=== PATIENT | male | born 1970 | race African-American/Black ===

== ENCOUNTER 2016-09-21 02:22 | Observation (INO) ==
[2016-09-21] MEDS ORDERED: PANTOPRAZOLE 40 MG VIAL IV STA (02:44)
[2016-09-21] MEDS ORDERED: MORPHINE 2 MG/1 ML SYRINGE IV STA (02:44)
[2016-09-21] MEDS ORDERED: METOPROLOL TARTRATE 25 MG TABLET PO STA (02:44)
[2016-09-21] MEDS ORDERED: ALUM/MAG/SIMETH/LIDO VISC 1:1 30 ML BOTTLE PO STA (02:44)
[2016-09-21] MEDS ORDERED: ONDANSETRON 4 MG/2 ML VIAL IV STA (02:44)
[2016-09-21] MEDS ORDERED: NITROGLYCERIN 2% OINT 1 INCH/GM PACK TOP STA (02:44)
--- NOTE | 2016-09-21 02:46 | Emergency Department Note ---
Slick Adams Meredith, am scribing for, and in the presence of, Dereje To MD 02:42. Yousuf Adams Charles R, MD, personally performed the services described in this documentation, ascribed by Corrine Kruger in my presence, and it is both accurate and complete . Arrival - Arrival Chief Complaint: Chest Pain Stated Complaint: CHEST PAIN ED Nursing Triage Note: Patient complains of chest pain that worsened this evening after drinking a six pack of beer and 2 shot of alcohol, and smoking. States that he has chronic angina. Hx of HTN. Mode of Arrival: Stretcher Limitations: No Limitations Source: Patient, Old Records Reviewed, RN Notes Reviewed Time Seen by Provider: 09/21/16 02:36 - History of Present Illness HPI Narrative: Pt is a 45 y/o black male brought to the ED by EMS with c/o sharp chset pain which onset this evening. He drank a six pack of beer and 2 shots earlier today. Pt is also a smoker. He has a history of HTN, chronic angina, previous suicide attempt, substance abuse, migraine, psoriasis, kidney stones, GI bleed, hemorrhiods, GERD, herniated disk, and MRSA. Pt takes a blood thinner. Onset (ago): hour(s) Allergies/Adverse Reactions: Allergies Allergy/AdvReac Type Severity Reaction Status Date / Time aspirin AdvReac Severe GI bleeding Verified 12/20/15 22:27 Home Medications: Home Medications Medication Instructions Recorded Confirmed Type Apixaban [Eliquis] 5 mg PO BID tablet 12/28/15 06/23/16 Rx Metoprolol Tartrate Tab [Lopressor 50 mg PO BID #120 tablet 06/24/16 Rx Tab] traMADol TAB [Ultram] 50 mg PO Q6H PRN #30 tablet 06/24/16 Rx Azithromycin [Azithromycin Z Pack] 250 mg PO DIRECTED #1 tablet 09/11/16 Rx Review of System - Review of System 12 point system: reviewed and no additional remarkable complaints except as stated - Review of System Cardiovascular: Present: as per HPI, chest pain Medical,Surgical,& Family Hx - Medical History Cardio: History of: Cardiac Dysrhythmia, Hypertension, Cardiovascular Problems ( chronic angina) Psychological: History of: Previous Suicide Attempt, Psychiatric/Substance Abuse Tx Neurology: History of: Migraine Comment Only: Seizures (no prior seizure) Endocrine: No history of: Diabetes Mellitus (NIDDM) Rheumatology: History of;: Psoriasis Respiratory: No history of: COPD Renal: No history of: Renal Failure Genitourinary: History of: Kidney Stones Gastrointestinal: History of: GERD, Gastrointestinal Bleed (Kathrin Garcia tear, EGD 2009), Hemorrhoids, GI Problems Musculoskeletal: History of: Back/Neck Problems (status post laminectomy with chronic low back pain), Herniated Disk, Musculoskeletal Problems (carpal tunnel surgery left) Other: History of: MRSA (left john I&D x 2 2010, wound vac treatment), Miscellaneous Medical Problems (alcohol abuse) - Surgical History Cardiac Surgeries: Patient Denies: Cardiac Surgery Thoracic Surgeries: Patient denies;: Organ Transplant Neurologic Surgeries: Surgical HX of: Neurologic Surgery (lumbar spine surgery) HEENT Surgeries: Patient denies: Tonsilectomy & Adenoidectomy Abdominal Surgeries: Surgical HX of: Colonoscopy, EGD Patient denies: Abdominal Surgery Reproductive Surgeries: Patient denies;: Genitourinary Surgery Orthopedic Surgeries: Surgical HX of;: Orthopedic Surgery (ankle surgeries due to injury, back surgery, right arm fracture with repair), Spinal Surgery (lumbar ) - Family History Family History: Reports;: Family Cancer (aunt leukemia), Family Diabetes ( parents, grandparents), Family Heart Disease (grandmother), Family Hypertension , Family Stroke (grandmother) - Social History Smoking Status: Current every day smoker Frequency of Alcohol Use: None Type of Drug Use: None Exam Vital Signs: Vital Signs Temperature 97.9 F 09/21/16 02:25 Pulse Rate 102 H 09/21/16 02:25 Respiratory Rate 20 09/21/16 02:25 Blood Pressure 147/106 09/21/16 02:25 O2 Sat by Pulse Oximetry 100 09/21/16 02:25 - General General appearance: alert, in no apparent distress - Head Head exam: Present: atraumatic, normocephalic - Eye Eye exam: Present: normal appearance, PERRL, EOMI - ENT ENT exam: Present: mucous membranes moist, normal external ear exam - Neck Neck exam: Present: full ROM, trachea midline. Absent: tenderness, meningismus , lymphadenopathy, thyromegaly - Chest Chest inspection: Present: symmetric chest wall rise, tenderness (chest tenderness to palpation). Absent: rash - Respiratory Respiratory exam: Present: normal lung sounds bilaterally. Absent: respiratory distress - Cardiovascular Cardiovascular exam: Present: irregular rhythm (irregulary irregular) - Abdominal Exam Abdominal exam: Present: normal bowel sounds, other (protuberant). Absent: tenderness - Extremities Exam Extremities exam: Present: full ROM, normal capillary refill, pedal edema (+2 bilaterally ). Absent: tenderness, calf tenderness - Back Exam Back exam: Present: full ROM. Absent: tenderness - Neurological Exam Neurological exam: Present: alert, oriented X3, CN II-XII intact. Absent: motor sensory deficit - Psychiatric Psychiatric exam: Present: normal affect, normal mood - Skin Skin exam: Present: warm, dry, other (psoriasis to bilateral legs) Course - Consultations Consultation #1: Hospitalist will admit patient Time: 04:14 Results - Labs CBC & BMP: 09/21/16 03:10 09/21/16 03:10 Lab Results: I have reviewed the patients labs Labs: Laboratory Tests 09/21/16 03:10 WBC 4.4 RBC 3.82 Hgb 12.9 L Hct 38.4 L Plt Count 139 Neut % (Auto) 30.4 L Robertson % (Auto) 13.1 H Laboratory Tests 09/21/16 03:10 Urine pH 6.0 Ur Specific [place] 1.002 Urine Blood Small Urine Urobilinogen < 2.0 H Urine Mucus Occasional Laboratory Tests 09/21/16 03:10 Urine Opiates Screen Negative Ur Barbiturates Screen Negative Ur Phencyclidine Scrn Negative U Amphetamine/Methamph Negative U Benzodiazepines Scrn Negative U Cocaine Metab Screen Negative U Cannabinoids Screen Negative Disposition Clinical Impression: Atypical chest pain, Alcohol abuse, Atrial arrhythmia, Psoriasis, Hypertension , Tobacco abuse, Atrial fibrillation and flutter, Lower extremity edema, Acute alcohol intoxication, Holiday heart syndrome, Medical non-compliance Case discussed with: patient Disposition: Still a Patient Condition: Stable Time of Disposition: 04:14
[2016-09-21 03:14] LABS: Basophils % 0.5 % (0.0-0.8); Eosinophils # 0.1 10*3/uL (0.0-0.87); Hematocrit 38.4 VOL% (42.0-52.0); Hemoglobin 12.9 GM/DL (14.0-18.0); Immature Granulocytes % 0.5 %; Immature Granulocytes Absolute 0.02 #; Lymphocytes # 2.4 10*3/uL (1.4-4.0); Lymphocytes % 53.5 % (21.2-54.2); Mean Corpuscular HGB Conc 33.6 GM/DL (32-36); Mean Corpuscular Hemoglobin 34 PG (27-34); Mean Corpuscular Volume 100.5 FL (87-102); Monocytes # 0.6 10*3/uL (0.11-0.8); Monocytes % 13.1 % (1.7-12.7); NRBC # 0.02 10*3/uL; Neutrophils # 1.4 10*3/uL (1.4-7.4); Neutrophils % 30.4 % (38.7-73.9); Platelet Count 139 T/CUMM (130-400); Red Blood Count 3.82 MC/CUMM (3.8-5.5); Red Cell Distribution Width 15.1 % (9.3-17.3); White Blood Count 4.4 T/CUMM (4-12)
[2016-09-21 03:19] LABS: Apearance,Urine CLEAR (Clear); Bilirubin,Urine Negative (Negative); Blood, Urine Small mg/dL (Negative); Glucose,Urine (UA) Negative (Negative); Ketones,Urine Negative (Negative); Mucus,Urine Occasional /LPF (Occasional); Nitrite,Urine Negative (Negative); Protein,Urine Negative; Urine Color Straw (Yellow); Urine Specific Gravity 1.002 (1.001-1.035); Urine Urobilinogen < 2.0 EU/DL (0.2-1.0)
[2016-09-21 03:25] LABS: Barbiturates Screen,Urine Negative (Negative); Benzodiazepines Screen,Urine Negative (Negative); Cannabinoid Screen,Urine Negative (Negative); Opiate Screen,Urine Negative (Negative); Phencyclidine Screen,Urine Negative (Negative)
[2016-09-21 03:26] LABS: PT Patient Result 10.2 SECS
[2016-09-21] MEDS ORDERED: NITROGLYCERIN 2% OINT 1 INCH/GM PACK TOP ONE (03:29)
[2016-09-21] MEDS ORDERED: PANTOPRAZOLE 40 MG VIAL IV ONE (03:29)
[2016-09-21] MEDS ORDERED: ALUM/MAG/SIMETH/LIDO VISC 1:1 30 ML BOTTLE PO ONE (03:30)
[2016-09-21] MEDS ORDERED: METOPROLOL TARTRATE 25 MG TABLET ONE (03:30)
[2016-09-21] MEDS ORDERED: MORPHINE 2 MG/1 ML SYRINGE ONE (03:30)
[2016-09-21] MEDS ORDERED: ONDANSETRON 4 MG/2 ML VIAL ONE (03:30)
[2016-09-21 03:40] LABS: Alanine Aminotransferase 70 U/L (16-61); Albumin 3.9 G/DL (3.4-5.0); Alkaline Phosphatase 58 U/L (45-117); Aspartate Amino Transferase 95 U/L (0-37); Bilirubin,Total < 0.39 MG/DL (0.2-1.0); Blood Urea Nitrogen 13 MG/DL (7-18); Calcium 8.8 MG/DL (8.5-10.1); Glucose 77 MG/DL (74-106); Magnesium 2.1 MG/DL (1.8-2.4); Potassium 3.6 MMOL/L (3.5-5.1); Sodium 143 MMOL/L (136-145); Total Protein 8.5 G/DL (6.4-8.3)
[2016-09-21 03:58] LABS: Lymphocytes 52 % (20-55); Segmented Neutrophils 31 % (50-85); Total Cells Counted 100
[2016-09-21 03:59] LABS: Platelet Estimate Adequate
--- NOTE | 2016-09-21 05:45 | Hospitalist History & Physical ---
Assessment and Plan (1) Atypical chest pain Status: Acute Assessment and plan: Admit to observation, monitor on telemetry, trend troponins Pain control with IV morphine Continue beta-ady, Eliquis, start statin Likely needs to be seen by cardiology again outpatient versus inpatient Current Visit: Yes (2) A-fib Status: Chronic Assessment and plan: Currently rate controlled. Monitor on telemetry. Continue Eliquis, beta- ady. Current Visit: Yes Qualifiers: Atrial fibrillation type: chronic Qualified Code(s): I48.2 - Chronic atrial fibrillation (3) Alcohol abuse Status: Acute Assessment and plan: Patient reports history of alcohol withdrawal seizures. Monitor closely for signs of DTs on alcohol withdrawal protocol with as needed Ativan. Give thiamine, multivitamin, folate, with IVF's. Transaminases elevated, likely secondary to alcohol abuse. Does not appear to have acute alcoholic hepatitis. Could get liver ultrasound as outpatient. Patient needs to quit drinking. Current Visit: Yes History of Present Illness Chief complaint: Chest pain History of present illness: Mr. Jenkins is a 45 year old -[place] male with history of A. fib, alcohol abuse, hypertension, GI bleed, "chronic angina" presented with a chief complaint chest pain. Patient reports that he has had a gradual progressive onset of chest pain for 2 years duration. He presented to the emergency department on this night because the pain became so much worse after a binge of alcohol which included 6 cans of beer and 2 shots of hard liquor. This is his typical pattern on the weekends. The pain is located on the left side of his chest, is sharp and constant. It is associated with diaphoresis, dyspnea, and the symptoms are worse with exertion, changes in position, palpation, smoking. Basically he states that he lives with the pain all the time, it limits his functional status, and that everything makes it worse and nothing makes it better. In the emergency department he received nitroglycerin, GI cocktail, morphine all without significant improvement in his symptoms. He additionally complains of chronic abdominal pain, nausea with vomiting 2-3 times weekly for a long time, "psoriasis" on his skin, chronic back pain, chronic joint pains, allergic rhinitis, chronic productive cough. The only medications that he takes at home are Eliquis and metoprolol. He has seen Dr. Alvarez in the past, but denied ever having heart catheterization or stress testing. He lives alone and does not have a primary care provider. Home Medications Medication Instructions Recorded Confirmed Type Apixaban [Eliquis] 5 mg PO BID tablet 12/28/15 06/23/16 Rx Metoprolol Tartrate Tab [Lopressor 50 mg PO BID #120 tablet 06/24/16 Rx Tab] traMADol TAB [Ultram] 50 mg PO Q6H PRN #30 tablet 06/24/16 Rx Azithromycin [Azithromycin Z Pack] 250 mg PO DIRECTED #1 tablet 09/11/16 Rx Allergies Allergy/AdvReac Type Severity Reaction Status Date / Time aspirin AdvReac Severe GI bleeding Verified 12/20/15 22:27 Medical,Surgical,& Family Hx - Medical History Cardio: History of: Cardiac Dysrhythmia, Hypertension, Cardiovascular Problems ( chronic angina) Psychological: History of: Previous Suicide Attempt, Psychiatric/Substance Abuse Tx Neurology: History of: Migraine Comment Only: Seizures (no prior seizure) Endocrine: No history of: Diabetes Mellitus (NIDDM) Rheumatology: History of;: Psoriasis Respiratory: No history of: COPD Renal: No history of: Renal Failure Genitourinary: History of: Kidney Stones Gastrointestinal: History of: GERD, Gastrointestinal Bleed (Kathrin Garcia tear, EGD 2009), Hemorrhoids, GI Problems Musculoskeletal: History of: Back/Neck Problems (status post laminectomy with chronic low back pain), Herniated Disk, Musculoskeletal Problems (carpal tunnel surgery left) Other: History of: MRSA (left john I&D x 2 2010, wound vac treatment), Miscellaneous Medical Problems (alcohol abuse) - Surgical History Cardiac Surgeries: Patient Denies: Cardiac Surgery Thoracic Surgeries: Patient denies;: Organ Transplant Neurologic Surgeries: Surgical HX of: Neurologic Surgery (lumbar spine surgery) HEENT Surgeries: Patient denies: Tonsilectomy & Adenoidectomy Abdominal Surgeries: Surgical HX of: Colonoscopy, EGD Patient denies: Abdominal Surgery Reproductive Surgeries: Patient denies;: Genitourinary Surgery Orthopedic Surgeries: Surgical HX of;: Orthopedic Surgery (ankle surgeries due to injury, back surgery, right arm fracture with repair), Spinal Surgery (lumbar ) - Family History Family History: Reports;: Family Cancer (aunt leukemia), Family Diabetes ( parents, grandparents), Family Heart Disease (grandmother), Family Hypertension , Family Stroke (grandmother) - Social History Smoking Status: Current every day smoker Have you smoked in the last 12 months: Yes (30 year smoking history) Frequency of Alcohol Use: None Type of Drug Use: None Marital Status: Single Lives With:: Alone Functional capacity: independent ambulation Review of systems: - Constitutional Constitutional: Present: Diaphoresis absent: chills, fatigue, fever(s), weight loss - EENT Eyes: Absent: blurry vision Ears: Absent: decreased hearing, ear pain Nose, mouth and throat: Present: nasal congestion, sore throat - Cardiovascular Cardiovascular: Present: chest pain at rest, chest pain with activity, dyspnea on exertion, edema, palpitations - Respiratory Respiratory: Present: cough, dyspnea absent: Hemoptysis - Gastrointestinal Gastrointestinal: Present: Abdominal pain, nausea and vomiting absent: constipation, diarrhea, dysphagia, hematemesis, hematochezia, melena - Genitourinary Genitourinary: Absent: difficulty urinating, dysuria, hematuria - Musculoskeletal Musculoskeletal: Present: Chronic back, knee, ankle pain - Neurological Neurological: Absent: confusion, dizziness, focal weakness, numbness, paresthesias, syncope - Psychiatric Psychiatric: Absent: anxiety, depression - Endocrine Endocrine: Absent: cold intolerance, heat intolerance, polydipsia, polyuria - Hematologic/Lymphatic Hematologic/Lymphatic: Absent: easy bleeding, easy bruising, lymphadenopathy Exam - Constitutional Vitals: Period Temp Pulse Resp BP Sys/Peterson Pulse Ox Last 24 Hr 97.9 F-97.9 F 102-102 20-20 147-147/106-106 100 General appearance: over weight, disheveled, other (-[place] male middle -aged) Exam: - Eye Eye exam: Present: EOMI. Absent: conjunctival injection, scleral icterus Pupils: Present: SHAREE - ENT ENT exam: Present: normal external ear exam, normal oropharynx - Expanded ENT Exam Mouth exam: Present: moist - Neck Neck exam: Present: normal inspection. Absent: lymphadenopathy, thyromegaly - Respiratory Respiratory exam: Present: Mild end expiratory wheezing, otherwise clear to auscultation bilaterally. Absent: accessory muscle use, rales, rhonchi, wheezes - Cardiovascular Cardiovascular exam: Present: Normal rate, irregularly irregular rhythm. Chest pain reproducible with palpation absent: diastolic murmur, systolic murmur - Expanded Cardiovascular Exam Peripheral pulses: 2+: posterior tibialis (L), posterior tibialis (R) - GI/Abdominal GI/Abdominal exam: Present: normal bowel sounds, soft, diffusely tender to palpation. Absent: distended, hyperactive bowel sounds, hypoactive bowel sounds , organomegaly, rebound - Extremities Exam Extremities exam: Present: Mild bilateral lower extremity edema - Neurological Exam Neurological exam: Present: alert, oriented X3, CN II-XII intact. Absent: motor deficit - Psychiatric Psychiatric exam: Present: Irritable affect - Skin Skin exam: [Present: warm, dry, dry skin rash around ankles. Absent: diaphoretic Results - Labs CBC & BMP: 09/21/16 03:10 09/21/16 03:10 - EKG EKG results: normal axis, normal QRS, normal ST/T EKG shows: atrial fibrillation - Diagnostic Findings Procedure: Chest x-ray: report reviewed by me
[2016-09-21] MEDS ORDERED: SODIUM CHLORIDE 0.45% 1,000 ML IV SCH (07:30)
[2016-09-21] MEDS ORDERED: LORazepam 1 MG TABLET PO PRN (07:30)
[2016-09-21] MEDS ORDERED: ACETAMINOPHEN 325 MG TABLET PO PRN (07:30)
[2016-09-21] MEDS ORDERED: MORPHINE 2 MG/1 ML SYRINGE IV PRN (07:30)
--- NOTE | 2016-09-21 07:35 | EKG Report ---
Stationary ECG Study [facility] ER Test Date: 09/21/2016 2:30:11 AM Pat Name: HARIKA PICKENS Department: Room: 287 Gender: M Railroad Operator: : 1970 Requested by: Dereje Walters Order Number: [id number] Hay MD: DIONE RUIZ Intervals [place] Rate: 84 P: 999 MS: 0 QRS: 7 QRSD: 108 T: 48 QT: 377 QTc: 418 Interpretive Statements ATRIAL FIBRILLATION ABNORMAL RHYTHM ECG Electronically Signed On 09-22-16 06:36:40 CDT by DIONE RUIZ [email or web address]
--- NOTE | 2016-09-21 07:49 | EKG Report ---
Stationary ECG Study [facility] Test Date: 09/21/2016 7:48:18 AM Pat Name: HARIKA PICKENS Department: Room: 287 Gender: M Medical Assembly: : 1970 Requested by: Lyndon Spangler Order Number: [id number] Reading MD: DINOE RUIZ Intervals [place] Rate: 61 P: 999 OK: 0 QRS: 64 QRSD: 89 T: 77 QT: 423 QTc: 426 Interpretive Statements ATRIAL FIBRILLATION ABNORMAL RHYTHM ECG OTHERWISE WNL Electronically Signed On 09-22-16 06:37:51 CDT by DIONE RUIZ [email or web address]
[2016-09-21] MEDS ORDERED: MULTIVITAMIN (CENTRUM) TABLET PO SCH (09:00)
[2016-09-21] MEDS ORDERED: APIXABAN 5 MG TABLET PO SCH (09:00)
[2016-09-21] MEDS ORDERED: THIAMINE 100 MG TABLET PO SCH (09:00)
[2016-09-21] MEDS ORDERED: METOPROLOL TARTRATE 25 MG TABLET PO SCH (09:00)
[2016-09-21] MEDS ORDERED: FOLIC ACID 1 MG TABLET PO SCH (09:00)
[2016-09-21] MEDS: ROSUVASTATIN 20 MG TABLET PO SCH ×2 (09:43→10:21)
--- NOTE | 2016-09-21 10:29 | EKG Report ---
Stationary ECG Study [facility] Test Date: 09/21/2016 10:28:50 AM Pat Name: HARIKA PICKENS Department: Room: 287 Gender: M Production Line Welder: : 1970 Requested by: Lyndon Spangler Order Number: [id number] Reading MD: DIONE RUIZ Intervals [place] Rate: 75 P: 999 MT: 0 QRS: 24 QRSD: 90 T: 58 QT: 374 QTc: 403 Interpretive Statements ATRIAL FIBRILLATION NONSPECIFIC T-WAVE ABNORMALITY ABNORMAL RHYTHM ECG Electronically Signed On 09-22-16 06:38:39 CDT by DIONE RUIZ [email or web address]
--- NOTE | 2016-09-21 10:37 | XRay Report ---
History: Chest pain Date: 09/21/2016 Study: Chest x-ray AP portable Comparison exam: September 11, 2016 chest x-ray The cardiac silhouette is upper normal in size. There is no mediastinal mass. The pulmonary vasculature is not engorged. There is no gross pleural effusion. There is some mild strandy subsegmental atelectasis in the medial right lung base. There is no fernando consolidated pneumonia. Osseous structures are similar. Impression: Shallow inspiration with mild subsegmental atelectasis in the right lung base. PROCEDURE INTERPRETED AT [facility] DEPARTMENT OF RADIOLOGY Final Report Signed by: Dr. Chely Navarrete
--- NOTE | 2016-09-21 11:43 | Cardiology Consult Note ---
Assessment and Plan (1) Atypical chest pain Status: Acute Assessment and plan: This chest pain is clearly not anginal in nature. It is probably musculoskeletal, but also could be GI related. I think the best treatment for this is abstinence from alcohol and proper nutrition. I don't think he requires further/repeat cardiac evaluation at this time. My standpoint he could be discharged home. He can follow-up with Dr. Alvarez in the clinic and with his primary care provider. Current Visit: Yes (2) Alcohol abuse Status: Acute Assessment and plan: Clearly the patient needs to stop drinking or at least drink moderately. This is a chronic long-standing problem. Current Visit: Yes (3) Medical non-compliance Status: Acute Current Visit: Yes (4) Psoriasis Status: Acute Current Visit: Yes (5) A-fib Status: Chronic Assessment and plan: Thereafter fibrillation rate is well-controlled and asymptomatic. I don't see any reason to make any changes. He is on proper stroke prophylaxis as well. Current Visit: Yes Qualifiers: Atrial fibrillation type: chronic Qualified Code(s): I48.2 - Chronic atrial fibrillation (6) Hypertension Status: Chronic Current Visit: Yes (7) Chronic anticoagulation Status: Acute Current Visit: Yes History of Present Illness - Consult Narrative History of present illness: Mr. Jenkins is a 45 year old male who has a history of alcoholism, with an associated cardiomyopathy. He also has a history of chronic atrial fibrillation and chronic recurrent atypical chest pain. Essentially, the patient came to the hospital after having several sharp stabbing chest pains. These lasted for one to 2 seconds. There were severe but promptly resolved. There were no associated with exertion or relieved with rest. This occurred while he was in his recliner. There were no associated symptoms. He does not have any exertional angina. He also has some chronic abdominal pain with occasional vomiting. This is presumed to be secondary to his chronic alcoholism and nonsteroidal use. He has no dysphagia or overt gastrointestinal blood loss. At the time I was seeing him he was feeling back to his usual self. He has chronic atrial fibrillation but this is well controlled as long as he is taking his medicines. He has seen Dr. Alvarez in the past. He is also on chronic anticoagulation with Eliquis. He has no fever, chills, or cough. He has no orthopnea or PND. He denies any peripheral edema. Since admission he isn't had multiple sets of cardiac enzymes which are negative. His presenting symptoms are clearly not from coronary ischemia. His atrial fibrillation wrote has been well-controlled. He apparently has a history of alcohol withdrawals seizures in the past. Home Medications Medication Instructions Recorded Confirmed Type Apixaban [Eliquis] 5 mg PO BID tablet 12/28/15 09/21/16 Rx Metoprolol Tartrate Tab [Lopressor 50 mg PO BID #120 tablet 06/24/16 09/21/16 Rx Tab] CC: Francisco Olmos - Home Medications and Allergies Home Medications: Home Medications Medication Instructions Recorded Confirmed Type Apixaban [Eliquis] 5 mg PO BID tablet 12/28/15 09/21/16 Rx Metoprolol Tartrate Tab [Lopressor 50 mg PO BID #120 tablet 06/24/16 09/21/16 Rx Tab] Allergies/Adverse Reactions: Allergies Allergy/AdvReac Type Severity Reaction Status Date / Time aspirin AdvReac Severe GI bleeding Verified 12/20/15 22:27 12 point system: reviewed and no additional remarkable complaints except as stated Medical,Surgical,& Family Hx - Medical History Cardio: History of: Cardiac Dysrhythmia, Hypertension, Cardiovascular Problems ( chronic angina) Psychological: History of: Previous Suicide Attempt, Psychiatric/Substance Abuse Tx Neurology: History of: Migraine Comment Only: Seizures (no prior seizure) Endocrine: No history of: Diabetes Mellitus (NIDDM) Rheumatology: History of;: Psoriasis Respiratory: No history of: COPD Renal: No history of: Renal Failure Genitourinary: History of: Kidney Stones Gastrointestinal: History of: GERD, Gastrointestinal Bleed (Kathrin Garcia tear, EGD 2009), Hemorrhoids, GI Problems Musculoskeletal: History of: Back/Neck Problems (status post laminectomy with chronic low back pain), Herniated Disk, Musculoskeletal Problems (carpal tunnel surgery left) Other: History of: MRSA (left john I&D x 2 2010, wound vac treatment), Miscellaneous Medical Problems (alcohol abuse) - Surgical History Cardiac Surgeries: Patient Denies: Cardiac Surgery Thoracic Surgeries: Patient denies;: Organ Transplant Neurologic Surgeries: Surgical HX of: Neurologic Surgery (lumbar spine surgery) HEENT Surgeries: Patient denies: Tonsilectomy & Adenoidectomy Abdominal Surgeries: Surgical HX of: Colonoscopy, EGD Patient denies: Abdominal Surgery Reproductive Surgeries: Patient denies;: Genitourinary Surgery Orthopedic Surgeries: Surgical HX of;: Orthopedic Surgery (ankle surgeries due to injury, back surgery, right arm fracture with repair), Spinal Surgery (lumbar ) - Family History Family History: Reports;: Family Cancer (aunt leukemia), Family Diabetes ( parents, grandparents), Family Heart Disease (grandmother), Family Hypertension , Family Stroke (grandmother) - Social History Smoking Status: Current every day smoker Frequency of Alcohol Use: None Type of Drug Use: None Physical Examination Vital Signs Temp Pulse Resp BP Pulse Ox 97.9 F 88 20 147/106 100 09/21/16 02:25 09/21/16 02:25 09/21/16 02:25 09/21/16 02:25 09/21/16 02:25 Other: General: Appears well developed, well nourished, no apparent distress HEENT: Normocephalic, atraumatic Neck: Supple Neck, Midline Trachea, No Bruit, No JVD Cardiac: Irregular rhythm, No Murmur, no gallop, no rub Lungs: Clear to auscultation, No Wheeze, Rales, Rhonchi Neuro: Cranial Nerve 2-12 Intact, Motor Function Grossly Intact Abdomen: Soft, Active Bowel Sounds, No Masses, No Pulsations/Bruits Skin: Normal color, no rash Extremities: No Clubbing, No Cyanosis, No Edema, Normal Upper Extr. Pulses Musculoskeletal: No acute abnormality noted Psychiatric: The patient has an anxious, depressed appearance but is otherwise normal Result/EKG - Labs CBC & BMP: 09/21/16 03:10 09/21/16 03:10 Lab Results: I have reviewed the past 24 hour labs Labs: Laboratory Results - last 24 hr 09/21/16 09/21/16 09/21/16 07:16 07:55 10:35 POC Glucose 72 L Troponin I < 0.015 < 0.015 - EKG EKG results: interpreted by me
--- NOTE | 2016-09-21 12:10 | Discharge Summary ---
Hospital Course - Hospital Course Hospital Course: Mr. Jenkins is a 45-year-old -[place] male with a history of A. fib, alcohol abuse, hypertension, GI bleed, chronic angina who presented with chest discomfort which been gradually progressive over the 2 years duration. He presented to the emergency room because pain became much worse after binge of alcohol which included 6 cans of beer and 2 shots of hard liquor. This is his typical pattern of drinking on the weekends. The pain was located on the left chest with sharp and constant in nature and associated with diaphoresis dyspnea and the symptoms worsen with exertion, changes in position, palpation. He was placed in observation and serial cardiac isoenzymes and EKGs revealed no evidence of myocardial necrosis. Patient was seen by Dr. Chawla of cardiology who felt this was not chest pain related to cardiac etiology likely secondary to his under alcohol abuse. He recommended discharge with follow-up Dr. Alvarez on outpatient basis. Alcohol abstinence has been recommended. - Time spent with patient Time with patient DS: Less than 30 minutes Diagnosis - Discharge Diagnosis (1) Alcohol abuse Status: Acute (2) A-fib Status: Chronic (3) Hypertension Status: Chronic (4) Atypical chest pain Status: Acute Discharge Plan - Discharge Data Disposition: Disch To Home/Self Care Condition at Discharge: Stable Discharge Diet: advance to your usual diet Activity: resume usual activities as tolerated Hygiene: no restrictions Weight Bearing at Discharge: full weight bearing - Discharge Medications New Multivitamin (Centrum) [Centrum Tab] 1 tablet PO DAILY tablet Thiamine Tab [Vitamin B1 Tab] 100 mg PO DAILY tablet Continue Apixaban [Eliquis] 5 mg PO BID tablet Metoprolol Tartrate Tab [Lopressor Tab] 50 mg PO BID #120 tablet - Follow Up or Referral Follow Up: Mdahu Alvarez MD [Physician] - 1 Week PCP, Clinic [Other] - 1 Week - Forms/Instructions Instructions: Acute Coronary Syndrome Exam - Constitutional Vitals: Period Temp Pulse Resp BP Sys/Peterson Pulse Ox Last 24 Hr 96.3 F 82-96 14-20 107-160/87-94 98-100 General appearance: no acute distress - Head Head exam: Present: normocephalic, atraumatic - Eye Eye exam: Present: EOMI Pupils: Present: SHAREE - ENT ENT exam: Present: normal exam - Neck Neck exam: Present: normal inspection - Respiratory Respiratory exam: Present: clear to auscultation bilaterally - Cardiovascular Cardiovascular exam: Present: regular rate and rhythm - GI/Abdominal GI/Abdominal exam: Present: normal bowel sounds, soft. Absent: distended, mass , tenderness - Extremities Exam Extremities exam: Absent: calf tenderness, edema - Back Exam Back exam: Present: normal inspection - Neurological Exam Neurological exam: Present: alert, oriented X3, CN II-XII intact. Absent: motor sensory deficit - Psychiatric Psychiatric exam: Present: normal affect, normal mood. Absent: agitated, anxious - Skin Skin exam: Present: warm, dry. Absent: erythema, rash Discharge Results Procedures and tests throughout hospitalization: Pending Orders 09/21/16 13:30 Troponin I Only Q3H Labs on day of discharge: Labs from last 24 hours 09/21/16 09/21/16 09/21/16 10:35 07:55 07:16 POC Glucose 72 L Troponin I < 0.015 < 0.015 - Impressions EKG without acute ST segment changes. Atrial fibrillation with controlled ventricular response. - Imaging and Cardiology Procedure: Chest x-ray: report reviewed by me DS: Provider Date of admission: 09/21/16 04:55 Primary care physician: Nonstaff Physician Attending physician on admission: Lyndon Henrandez MD Consults: 09/21/16 07:30 Consult to Physician [CONS] Routine Comment: Consulting Provider: Cardiology - [facility] Person Notified: cam @ [facility] Date Notified: 09/21/16 Time Notified: 10:01 09/21/16 07:34 Consult to Pharmacy [CONS] Routine Reason for Pharmacy Consult: Adjust Meds Renal Funct Discharging clinician: Francisco Olmos Expected date of discharge: 09/21/16
[2016-09-21 12:31] VITALS: BP 107/53
--- NOTE | 2016-09-21 13:32 | EKG Report ---
Stationary ECG Study [facility] Test Date: 09/21/2016 1:32:02 PM Pat Name: HARIKA PICKENS Department: Room: 287 Gender: M Retaining Room Cutter: : 1970 Requested by: Lyndon Spangler Order Number: [id number] Reading MD: DIONE RUIZ Intervals [place] Rate: 82 P: 999 HI: 0 QRS: 23 QRSD: 91 T: 64 QT: 401 QTc: 439 Interpretive Statements ATRIAL FIBRILLATION ABNORMAL RHYTHM ECG Electronically Signed On 09-22-16 06:39:23 CDT by DIONE RUIZ [email or web address]
== END 2016-09-21 14:12 | disposition home or self-care (01) ==
LOC: EDUNIT# → N.EDINP 02:22 → N.ED 02:22 → SUATTDRO 04:55 → N.TELEN 06:15
PROVIDERS: ADMIT Student in an Organized Health Care Education/Training Program; ATTEND Hospitalist

== ENCOUNTER 2017-06-02 05:04 | Inpatient (IN) ==
[2017-06-02] MEDS ORDERED: ONDANSETRON 4 MG/2 ML VIAL IV STA (05:11)
[2017-06-02] MEDS ORDERED: MORPHINE 2 MG/1 ML SYRINGE IV STA (05:11)
[2017-06-02] MEDS ORDERED: MORPHINE 2 MG/1 ML SYRINGE ONE (05:24)
[2017-06-02] MEDS ORDERED: ONDANSETRON 4 MG/2 ML VIAL ONE (05:24)
[2017-06-02 06:00] LABS: Basophils % 0.8 % (0.0-0.8); Eosinophils % 0.3 % (0.00-10.9); Hematocrit 44.8 VOL% (42.0-52.0); Hemoglobin 15.6 GM/DL (14.0-18.0); Immature Granulocytes % 1.1 %; Immature Granulocytes Absolute 0.04 #; Lymphocytes # 1.8 10*3/uL (1.4-4.0); Lymphocytes % 50.4 % (21.2-54.2); Mean Corpuscular HGB Conc 34.8 GM/DL (32-36); Mean Corpuscular Hemoglobin 34 PG (27-34); Mean Corpuscular Volume 98.2 FL (87-102); Mean Platelet Volume 10.3 FL (9.6-12.0); Monocytes # 0.6 10*3/uL (0.11-0.8); Monocytes % 16.1 % (1.7-12.7); NRBC # 0.02 10*3/uL; Neutrophils # 1.1 10*3/uL (1.4-7.4); Neutrophils % 31.3 % (38.7-73.9); Platelet Count 143 T/CUMM (130-400); Red Blood Count 4.56 MC/CUMM (3.8-5.5); Red Cell Distribution Width 14.6 % (9.3-17.3); White Blood Count 3.5 T/CUMM (4-12)
[2017-06-02 06:38] LABS: Lymphocytes 44 % (20-55); Nucleated Red Blood Cells 1 (0-5); Segmented Neutrophils 43 % (50-85); Total Cells Counted 100
[2017-06-02 06:39] LABS: Alanine Aminotransferase 102 U/L (16-61); Albumin 3.7 G/DL (3.4-5.0); Alkaline Phosphatase 54 U/L (45-117); Aspartate Amino Transferase 168 U/L (0-37); Bilirubin,Total < 0.39 MG/DL (0.2-1.0); Blood Urea Nitrogen 28 MG/DL (7-18); Calcium 8.2 MG/DL (8.5-10.1); Glucose 73 MG/DL (74-106); Hypochromasia 1+; Osmolality,Calculated 272.2 MOS/KG (273-304); Platelet Estimate Adequate; Sodium 134 MMOL/L (136-145); Total Protein 8.5 G/DL (6.4-8.3)
[2017-06-02] MEDS ORDERED: SODIUM CHLORIDE 0.9% 1,000 ML IV STA (07:32)
[2017-06-02] MEDS ORDERED: PIPERACILLIN/TAZOBACTAM 3,375 MG in SODIUM CHLORIDE 0.9% 100 ML IV STA (07:32)
[2017-06-02] MEDS ORDERED: PIPERACILLIN/TAZOBACTAM 3,375 MG VIAL IV ONE (07:55)
[2017-06-02] MEDS ORDERED: DILTIAZEM 50 MG/10 ML VIAL IV STA (08:18)
[2017-06-02] MEDS ORDERED: DILTIAZEM 50 MG/10 ML VIAL IV ONE (08:33)
[2017-06-02] MEDS ORDERED: DILTIAZEM 100 MG VIAL.ADD IV ONE (08:33)
[2017-06-02] MEDS ORDERED: SODIUM CHLORIDE 0.9% 100 ML IV ONE (08:34)
[2017-06-02] MEDS: DILTIAZEM INJ 100 MG in SODIUM CHLORIDE 0.9% 100 ML IV SCH ×2 (08:50→18:46)
[2017-06-02] MEDS ORDERED: LEVOFLOXACIN INJ 150 ML IV ONE (12:21)
[2017-06-02] MEDS: LEVOFLOXACIN INJ 750 MG in PREMIX 1 EACH IV SCH (12:27)
[2017-06-02] MEDS: NICOTINE 14 MG/24 HR PATCH TRANSDERM SCH (19:28)
[2017-06-02] MEDS: METOPROLOL TARTRATE 50 MG TABLET PO SCH (22:20)
[2017-06-02] MEDS: APIXABAN 5 MG TABLET PO SCH (22:20)
[2017-06-02] MEDS: tiZANidine 4 MG TABLET PO PRN (23:49)
[2017-06-03] MEDS: DILTIAZEM INJ 100 MG in SODIUM CHLORIDE 0.9% 100 ML IV SCH (08:32)
[2017-06-03] MEDS: LEVOFLOXACIN INJ 750 MG in PREMIX 1 EACH IV SCH (09:02)
[2017-06-03] MEDS: NICOTINE 14 MG/24 HR PATCH TRANSDERM SCH (09:02)
[2017-06-03] MEDS: APIXABAN 5 MG TABLET PO SCH ×2 (09:03→21:36)
[2017-06-03] MEDS: METOPROLOL TARTRATE 50 MG TABLET PO SCH ×2 (09:03→21:36)
[2017-06-03] MEDS ORDERED: KETOROLAC 30 MG/1 ML VIAL IV PRN (09:30)
[2017-06-03] MEDS ORDERED: KETOROLAC 30 MG/1 ML VIAL IV SCH (10:00)
[2017-06-03] MEDS ORDERED: BUTALBITAL/ACETAMIN/CAFFEINE 50-325-40 MG TABLET PO PRN (10:32)
[2017-06-03] MEDS: tiZANidine 4 MG TABLET PO PRN (21:36)
[2017-06-04 05:03] LABS: Basophils % 0.7 % (0.0-0.8); Eosinophils % 0.3 % (0.00-10.9); Hemoglobin 14.5 GM/DL (14.0-18.0); Immature Granulocytes % 0.3 %; Immature Granulocytes Absolute 0.01 #; Lymphocytes # 2.2 10*3/uL (1.4-4.0); Lymphocytes % 75.3 % (21.2-54.2); Mean Corpuscular HGB Conc 34.5 GM/DL (32-36); Mean Corpuscular Hemoglobin 34 PG (27-34); Mean Corpuscular Volume 97.9 FL (87-102); Mean Platelet Volume 10.6 FL (9.6-12.0); Monocytes # 0.3 10*3/uL (0.11-0.8); Monocytes % 10.1 % (1.7-12.7); NRBC # 0.02 10*3/uL; Neutrophils # 0.4 10*3/uL (1.4-7.4); Neutrophils % 13.3 % (38.7-73.9); Platelet Count 103 T/CUMM (130-400); Red Blood Count 4.29 MC/CUMM (3.8-5.5); Red Cell Distribution Width 13.9 % (9.3-17.3)
[2017-06-04 05:46] LABS: Calcium 8.3 MG/DL (8.5-10.1); Potassium 4.1 MMOL/L (3.5-5.1)
[2017-06-04 05:58] LABS: Risk Ratio 3.97; VLDL CHOLESTEROL 21.4 MG/DL
[2017-06-04 06:04] LABS: Lymphocytes 70 % (20-55); Platelet Estimate Adequate; Segmented Neutrophils 20 % (50-85); Total Cells Counted 100
[2017-06-04] MEDS: NICOTINE 14 MG/24 HR PATCH TRANSDERM SCH (09:01)
[2017-06-04] MEDS: APIXABAN 5 MG TABLET PO SCH ×2 (09:02→20:10)
[2017-06-04] MEDS: METOPROLOL TARTRATE 50 MG TABLET PO SCH ×2 (09:02→20:10)
[2017-06-04] MEDS: LEVOFLOXACIN INJ 750 MG in PREMIX 1 EACH IV SCH (09:02)
[2017-06-04] MEDS ORDERED: LISINOPRIL 2.5 MG TABLET PO SCH (12:30)
[2017-06-04] MEDS: FUROSEMIDE 20 MG/2 ML VIAL IV SCH (16:11)
[2017-06-04] MEDS: tiZANidine 4 MG TABLET PO PRN (20:10)
[2017-06-04] MEDS: LISINOPRIL 5 MG TABLET PO SCH (20:10)
[2017-06-05 05:59] LABS: Basophils % 0.7 % (0.0-0.8); Eosinophils % 0.7 % (0.00-10.9); Hematocrit 42.4 VOL% (42.0-52.0); Immature Granulocytes % 0.6 %; Immature Granulocytes Absolute 0.03 #; Lymphocytes # 3.5 10*3/uL (1.4-4.0); Lymphocytes % 65.9 % (21.2-54.2); Mean Corpuscular HGB Conc 35.4 GM/DL (32-36); Mean Corpuscular Hemoglobin 34 PG (27-34); Mean Platelet Volume 11.3 FL (9.6-12.0); Monocytes # 0.5 10*3/uL (0.11-0.8); Monocytes % 8.9 % (1.7-12.7); NRBC # 0.02 10*3/uL; Neutrophils # 1.2 10*3/uL (1.4-7.4); Neutrophils % 23.2 % (38.7-73.9); Platelet Count 116 T/CUMM (130-400); Red Blood Count 4.37 MC/CUMM (3.8-5.5); Red Cell Distribution Width 13.6 % (9.3-17.3); White Blood Count 5.4 T/CUMM (4-12)
[2017-06-05 06:26] LABS: Calcium 8.7 MG/DL (8.5-10.1); Magnesium 1.9 MG/DL (1.8-2.4); Osmolality,Calculated 266.2 MOS/KG (273-304)
[2017-06-05 06:52] LABS: Hypochromasia 1+; Lymphocytes 64 % (20-55); Segmented Neutrophils 24 % (50-85); Total Cells Counted 100
[2017-06-05 06:53] LABS: Atypical Lymphocytes Few; Platelet Estimate Decreased
[2017-06-05] MEDS: FUROSEMIDE 20 MG/2 ML VIAL IV SCH ×2 (10:07→17:15)
[2017-06-05] MEDS: LEVOFLOXACIN INJ 750 MG in PREMIX 1 EACH IV SCH (10:09)
[2017-06-05] MEDS: METOPROLOL TARTRATE 50 MG TABLET PO SCH ×2 (10:11→21:46)
[2017-06-05] MEDS: APIXABAN 5 MG TABLET PO SCH ×2 (10:11→21:46)
[2017-06-05] MEDS: LISINOPRIL 5 MG TABLET PO SCH ×2 (10:11→21:46)
[2017-06-05] MEDS: NICOTINE 14 MG/24 HR PATCH TRANSDERM SCH (10:12)
[2017-06-05] MEDS: tiZANidine 4 MG TABLET PO PRN (21:50)
[2017-06-06 08:56] VITALS: BP 99/72
[2017-06-06] MEDS: APIXABAN 5 MG TABLET PO SCH (09:31)
[2017-06-06] MEDS: FUROSEMIDE 20 MG/2 ML VIAL IV SCH (09:31)
[2017-06-06] MEDS: LISINOPRIL 5 MG TABLET PO SCH (09:31)
[2017-06-06] MEDS: METOPROLOL TARTRATE 50 MG TABLET PO SCH (09:32)
== END 2017-06-06 09:50 | disposition home or self-care (01) | DRG 308 ==
LOC: EDUNIT# → N.ED 05:04 → N.EDINP 07:45 → N.TELES 17:10
PROVIDERS: ADMIT Internal Medicine Geriatric Medicine; ATTEND Internal Medicine Geriatric Medicine

== ENCOUNTER 2017-10-20 01:50 | Observation (INO) ==
[2017-10-20] MEDS ORDERED: ALUM/MAG/SIMETH/LIDO VISC 1:1 30 ML BOTTLE PO STA (02:04)
[2017-10-20] MEDS ORDERED: NITROGLYCERIN 2% OINT 1 INCH/GM PACK TOP STA (02:04)
[2017-10-20] MEDS ORDERED: MORPHINE 4 MG/1 ML VIAL IV STA (02:04)
[2017-10-20] MEDS ORDERED: METOPROLOL TARTRATE 5 MG/5 ML VIAL IV STA (02:04)
[2017-10-20] MEDS ORDERED: ONDANSETRON 4 MG/2 ML VIAL IV STA (02:04)
[2017-10-20] MEDS ORDERED: SODIUM CHLORIDE 0.9% 500 ML IV STA (02:44)
[2017-10-20] MEDS ORDERED: ONDANSETRON 4 MG/2 ML VIAL ONE (02:44)
[2017-10-20] MEDS ORDERED: NITROGLYCERIN 2% OINT 1 INCH/GM PACK TOP ONE (02:44)
[2017-10-20] MEDS ORDERED: ALUM/MAG/SIMETH/LIDO VISC 1:1 30 ML BOTTLE PO ONE (02:45)
[2017-10-20] MEDS ORDERED: MORPHINE 4 MG/1 ML VIAL ONE (02:45)
[2017-10-20] MEDS ORDERED: METOPROLOL TARTRATE 5 MG/5 ML VIAL IV ONE (02:45)
[2017-10-20 02:48] LABS: Basophils % 0.7 % (0.0-0.8); Eosinophils # 0.1 10*3/uL (0.0-0.87); Eosinophils % 1.2 % (0.00-10.9); Hematocrit 38.5 VOL% (42.0-52.0); Hemoglobin 13.3 GM/DL (14.0-18.0); Immature Granulocytes % 0.7 %; Immature Granulocytes Absolute 0.03 #; Lymphocytes # 2.3 10*3/uL (1.4-4.0); Mean Corpuscular HGB Conc 34.5 GM/DL (32-36); Mean Corpuscular Hemoglobin 35 PG (27-34); Mean Corpuscular Volume 102.1 FL (87-102); Mean Platelet Volume 10.5 FL (9.6-12.0); Monocytes # 0.5 10*3/uL (0.11-0.8); Monocytes % 11.8 % (1.7-12.7); NRBC # 0.02 10*3/uL; Neutrophils # 1.3 10*3/uL (1.4-7.4); Neutrophils % 31.6 % (38.7-73.9); Platelet Count 153 T/CUMM (130-400); Red Blood Count 3.77 MC/CUMM (3.8-5.5); Red Cell Distribution Width 13.2 % (9.3-17.3); White Blood Count 4.2 T/CUMM (4-12)
[2017-10-20 03:07] LABS: Apearance,Urine CLEAR (Clear); Bilirubin,Urine Negative (Negative); Blood, Urine Negative (Negative); Glucose,Urine (UA) Negative (Negative); Ketones,Urine Negative (Negative); Nitrite,Urine Negative (Negative); Protein,Urine Negative; Urine Color Yellow (Yellow); Urine Specific Gravity 1.005 (1.001-1.035); Urine Urobilinogen < 2.0 EU/DL (0.2-1.0); WBC,Urine <1 /HPF (0-6)
[2017-10-20 03:19] LABS: Barbiturates Screen,Urine Negative (Negative); Benzodiazepines Screen,Urine Negative (Negative); Cannabinoid Screen,Urine Negative (Negative); Opiate Screen,Urine Negative (Negative); Phencyclidine Screen,Urine Negative (Negative)
[2017-10-20 03:20] LABS: Alanine Aminotransferase 91 U/L (16-61); Albumin 3.6 G/DL (3.4-5.0); Alkaline Phosphatase 68 U/L (45-117); Aspartate Amino Transferase 118 U/L (0-37); Bilirubin,Total < 0.39 MG/DL (0.2-1.0); Blood Urea Nitrogen 8 MG/DL (7-18); Calcium 8.4 MG/DL (8.5-10.1); Glucose 82 MG/DL (74-106); Osmolality,Calculated 269.8 MOS/KG (273-304); Potassium 4.6 MMOL/L (3.5-5.1); Sodium 137 MMOL/L (136-145); Total Protein 8.3 G/DL (6.4-8.3)
[2017-10-20 03:22] LABS: INR 0.9; PT Patient Result 9.8 SECS
[2017-10-20 04:44] LABS: Band Neutrophils 1 % (0-10); Eosinophils 3 % (0-10); Lymphocytes 56 % (20-55); Segmented Neutrophils 32 % (50-85); Total Cells Counted 100
[2017-10-20 04:45] LABS: Platelet Estimate Adequate; Target Cells Few
[2017-10-20] MEDS ORDERED: MORPHINE 4 MG/1 ML VIAL IV PRN (05:17)
[2017-10-20] MEDS ORDERED: ACETAMINOPHEN 325 MG TABLET PO PRN (05:17)
[2017-10-20] MEDS ORDERED: ONDANSETRON 4 MG/2 ML VIAL IV PRN (05:17)
[2017-10-20 07:03] LABS: Basophils % 0.9 % (0.0-0.8); Eosinophils # 0.1 10*3/uL (0.0-0.87); Eosinophils % 1.7 % (0.00-10.9); Hematocrit 35.3 VOL% (42.0-52.0); Hemoglobin 12.2 GM/DL (14.0-18.0); Immature Granulocytes % 0.6 %; Immature Granulocytes Absolute 0.02 #; Lymphocytes % 55.8 % (21.2-54.2); Mean Corpuscular HGB Conc 34.6 GM/DL (32-36); Mean Corpuscular Hemoglobin 36 PG (27-34); Mean Corpuscular Volume 102.9 FL (87-102); Mean Platelet Volume 10.3 FL (9.6-12.0); Monocytes # 0.5 10*3/uL (0.11-0.8); Monocytes % 13.4 % (1.7-12.7); Neutrophils % 27.6 % (38.7-73.9); Platelet Count 156 T/CUMM (130-400); Red Blood Count 3.43 MC/CUMM (3.8-5.5); Red Cell Distribution Width 13.4 % (9.3-17.3); White Blood Count 3.5 T/CUMM (4-12)
[2017-10-20 07:25] LABS: Band Neutrophils 1 % (0-10); Eosinophils 1 % (0-10); Giant Platelets Few; Hypochromasia 1+; Lymphocytes 63 % (20-55); Platelet Estimate Normal; Segmented Neutrophils 23 % (50-85); Total Cells Counted 100
[2017-10-20 07:26] LABS: Atypical Lymphocytes Few
[2017-10-20 07:36] LABS: Ferritin 286.8 ng/ml (26-388); Risk Ratio 2.39; VLDL CHOLESTEROL 12.4 MG/DL
[2017-10-20 07:45] LABS: Folate 11.1 NG/ML (5.4-24.0); Vitamin B12 487 PG/ML (211-911)
[2017-10-20 08:14] LABS: Sedimentation Rate-Westergren 70 MM/HR (0-15)
[2017-10-20 08:26] VITALS: BP 125/68
[2017-10-20] MEDS ORDERED: PANTOPRAZOLE 40 MG TABLET PO SCH (09:00)
[2017-10-20] MEDS ORDERED: METOPROLOL TARTRATE 100 MG TABLET PO SCH (09:00)
[2017-10-20] MEDS ORDERED: LISINOPRIL 5 MG TABLET PO SCH (09:00)
[2017-10-20] MEDS ORDERED: CYCLOBENZAPRINE 10 MG TABLET PO SCH (09:00)
[2017-10-20] MEDS ORDERED: FOLIC ACID 1 MG TABLET PO SCH (09:00)
[2017-10-20] MEDS ORDERED: MAGNESIUM OXIDE 400 MG TABLET PO SCH (09:00)
[2017-10-20] MEDS ORDERED: THIAMINE 100 MG TABLET PO SCH (09:00)
[2017-10-20] MEDS ORDERED: ENOXAPARIN 40 MG/0.4 ML SYRINGE SUBCUT SCH (09:00)
[2017-10-20] MEDS ORDERED: APIXABAN 5 MG TABLET PO SCH (09:00)
[2017-10-20] MEDS ORDERED: VITAMIN E 100 UNIT PO SCH (09:00)
[2017-10-20 10:22] LABS: Hemoglobin A1 (Alkaline) 97.4 % (96.5-98.5); Hemoglobin A2 (Alkaline) 2.6 % (1.5-3.5)
== END 2017-10-20 12:02 | disposition home or self-care (01) ==
LOC: EDBD → EDUNIT# → N.ED 01:50 → N.EDINP 01:50 → N.ICU 05:24
PROVIDERS: ADMIT Hospitalist; ATTEND Hospitalist

== ENCOUNTER 2017-11-23 21:21 | Inpatient (IN) ==
[2017-11-23] MEDS ORDERED: DILTIAZEM 100 MG VIAL.ADD IV ONE (21:48)
[2017-11-23] MEDS ORDERED: DILTIAZEM 50 MG/10 ML VIAL IV STA (21:53)
[2017-11-23] MEDS ORDERED: ALBUTEROL/IPRATROPIUM 3 ML NEB RESP TX STA (21:53)
[2017-11-23] MEDS ORDERED: ONDANSETRON 4 MG/2 ML VIAL IV STA (21:53)
[2017-11-23] MEDS ORDERED: FUROSEMIDE 40 MG/4 ML VIAL IV STA (21:53)
[2017-11-23] MEDS ORDERED: NITROGLYCERIN 2% OINT 1 INCH/GM PACK TOP STA (21:53)
[2017-11-23] MEDS ORDERED: MORPHINE 4 MG/1 ML VIAL IV STA (21:53)
[2017-11-23] MEDS ORDERED: DIPH/TET/ACEL PERT BOOSTER VACCINE 0.5 ML VIAL IM ONE (21:56)
[2017-11-23] MEDS ORDERED: methylPREDNISolone SOD SUC 125 MG/2 ML VIAL IV STA (21:56)
[2017-11-23 22:03] LABS: Basophils % 0.4 % (0.0-0.8); Eosinophils % 0.6 % (0.00-10.9); Hematocrit 37.3 VOL% (42.0-52.0); Hemoglobin 12.8 GM/DL (14.0-18.0); Immature Granulocytes % 0.4 %; Immature Granulocytes Absolute 0.03 #; Lymphocytes # 4.3 10*3/uL (1.4-4.0); Lymphocytes % 63.5 % (21.2-54.2); Mean Corpuscular HGB Conc 34.3 GM/DL (32-36); Mean Corpuscular Hemoglobin 35 PG (27-34); Mean Corpuscular Volume 102.2 FL (87-102); Mean Platelet Volume 9.5 FL (9.6-12.0); Monocytes # 0.5 10*3/uL (0.11-0.8); Monocytes % 7.9 % (1.7-12.7); Neutrophils # 1.8 10*3/uL (1.4-7.4); Neutrophils % 27.2 % (38.7-73.9); Platelet Count 171 T/CUMM (130-400); Red Blood Count 3.65 MC/CUMM (3.8-5.5); Red Cell Distribution Width 14.2 % (9.3-17.3); White Blood Count 6.7 T/CUMM (4-12)
[2017-11-23 22:17] LABS: PT Patient Result 10.3 SECS
[2017-11-23 22:24] LABS: Lymphocytes 68 % (20-55); Metamyelocytes 2 %; Platelet Estimate Normal; Segmented Neutrophils 28 % (50-85); Total Cells Counted 100
[2017-11-23 22:25] LABS: Hypochromasia 1+; Polychromasia Few
[2017-11-23 22:27] LABS: Alanine Aminotransferase 49 U/L (16-61); Albumin 3.6 G/DL (3.4-5.0); Alkaline Phosphatase 57 U/L (45-117); Aspartate Amino Transferase 70 U/L (0-37); Bilirubin,Total < 0.39 MG/DL (0.2-1.0); Blood Urea Nitrogen 7 MG/DL (7-18); Calcium 8.1 MG/DL (8.5-10.1); Glucose 90 MG/DL (74-106); Osmolality,Calculated 278.3 MOS/KG (273-304); Potassium 3.7 MMOL/L (3.5-5.1); Sodium 141 MMOL/L (136-145); Total Protein 8.7 G/DL (6.4-8.3)
[2017-11-23] MEDS ORDERED: LIDOCAINE 1%/EPI INJ 20 ML VIAL ONE (22:43)
[2017-11-23] MEDS: DILTIAZEM INJ 100 MG in SODIUM CHLORIDE 0.9% 100 ML IV SCH (22:54)
[2017-11-23 23:20] LABS: Apearance,Urine CLEAR (Clear); Bilirubin,Urine Negative (Negative); Blood, Urine Negative (Negative); Glucose,Urine (UA) Negative (Negative); Ketones,Urine Negative (Negative); Mucus,Urine Occasional /LPF (Occasional); Nitrite,Urine Negative (Negative); Protein,Urine Negative; Urine Color Straw (Yellow); Urine Specific Gravity 1.003 (1.001-1.035); Urine Urobilinogen < 2.0 EU/DL (0.2-1.0)
[2017-11-23 23:25] LABS: Barbiturates Screen,Urine Negative (Negative); Benzodiazepines Screen,Urine Negative (Negative); Cannabinoid Screen,Urine Negative (Negative); Opiate Screen,Urine Negative (Negative); Phencyclidine Screen,Urine Negative (Negative)
[2017-11-24] MEDS ORDERED: ONDANSETRON 4 MG/2 ML VIAL IV PRN (00:07)
[2017-11-24] MEDS ORDERED: LORazepam 2 MG/1 ML VIAL IV PRN (00:10)
[2017-11-24] MEDS: MORPHINE 4 MG/1 ML VIAL IV PRN ×3 (00:45→20:31)
[2017-11-24 02:34] LABS: Risk Ratio 2.29
[2017-11-24] MEDS: NITROGLYCERIN 2% OINT 1 INCH/GM PACK TOP SCH ×3 (05:41→17:52)
[2017-11-24] MEDS ORDERED: SODIUM CHLORIDE 0.9% 1,000 ML IV SCH (06:30)
[2017-11-24] MEDS: DILTIAZEM INJ 100 MG in SODIUM CHLORIDE 0.9% 100 ML IV SCH ×3 (08:21→23:28)
[2017-11-24] MEDS: NAPROXEN 500 MG TABLET PO SCH ×2 (08:28→17:52)
[2017-11-24] MEDS ORDERED: ASPIRIN EC 325 MG TABLET PO SCH (09:00)
[2017-11-24] MEDS: FOLIC ACID 1 MG TABLET PO SCH ×2 (09:07→12:39)
[2017-11-24] MEDS: METOPROLOL TARTRATE 100 MG TABLET PO SCH ×3 (09:07→20:28)
[2017-11-24] MEDS: APIXABAN 5 MG TABLET PO SCH ×3 (09:07→20:28)
[2017-11-24] MEDS: CYCLOBENZAPRINE 10 MG TABLET PO SCH ×3 (09:07→20:28)
[2017-11-24] MEDS: MULTIVITAMIN (CENTRUM) TABLET PO SCH ×2 (09:07→12:39)
[2017-11-24] MEDS: LISINOPRIL 5 MG TABLET PO SCH ×3 (09:08→20:28)
[2017-11-24] MEDS: VITAMIN E 200 UNIT CAPSULE PO SCH (09:08)
[2017-11-24] MEDS: THIAMINE 100 MG TABLET PO SCH ×2 (09:08→12:39)
[2017-11-25] MEDS: NITROGLYCERIN 2% OINT 1 INCH/GM PACK TOP SCH ×3 (00:11→12:54)
[2017-11-25 04:59] LABS: Basophils % 0.1 % (0.0-0.8); Hematocrit 33.1 VOL% (42.0-52.0); Hemoglobin 11.6 GM/DL (14.0-18.0); Immature Granulocytes % 0.7 %; Immature Granulocytes Absolute 0.06 #; Lymphocytes # 1.4 10*3/uL (1.4-4.0); Lymphocytes % 14.8 % (21.2-54.2); Mean Corpuscular Hemoglobin 36 PG (27-34); Mean Corpuscular Volume 101.5 FL (87-102); Mean Platelet Volume 10.9 FL (9.6-12.0); Monocytes # 0.8 10*3/uL (0.11-0.8); Monocytes % 9.1 % (1.7-12.7); NRBC # 0.08 10*3/uL; Neutrophils # 6.9 10*3/uL (1.4-7.4); Neutrophils % 75.3 % (38.7-73.9); Platelet Count 162 T/CUMM (130-400); Red Blood Count 3.26 MC/CUMM (3.8-5.5); Red Cell Distribution Width 14.5 % (9.3-17.3); White Blood Count 9.2 T/CUMM (4-12)
[2017-11-25 05:24] LABS: Calcium 8.9 MG/DL (8.5-10.1); Potassium 3.9 MMOL/L (3.5-5.1)
[2017-11-25] MEDS: MULTIVITAMIN (CENTRUM) TABLET PO SCH (09:27)
[2017-11-25] MEDS: NAPROXEN 500 MG TABLET PO SCH (09:27)
[2017-11-25] MEDS: APIXABAN 5 MG TABLET PO SCH (09:27)
[2017-11-25] MEDS: CYCLOBENZAPRINE 10 MG TABLET PO SCH (09:27)
[2017-11-25] MEDS: THIAMINE 100 MG TABLET PO SCH (09:28)
[2017-11-25] MEDS: METOPROLOL TARTRATE 100 MG TABLET PO SCH (09:28)
[2017-11-25] MEDS: FOLIC ACID 1 MG TABLET PO SCH (09:28)
[2017-11-25] MEDS: LISINOPRIL 5 MG TABLET PO SCH (09:28)
[2017-11-25] MEDS: VITAMIN E 200 UNIT CAPSULE PO SCH (09:28)
[2017-11-25 12:33] VITALS: BP 114/64
== END 2017-11-25 13:05 | disposition home or self-care (01) | DRG 988 ==
LOC: N.ED 21:21 → N.EDINP 23:43 → N.CC 11-24 00:24 → N.TELEN 11-24 19:44
PROVIDERS: ADMIT Internal Medicine; ATTEND Internal Medicine

== ENCOUNTER 2019-02-06 04:52 | Inpatient (IN) ==
[2019-02-06 05:22] LABS: Basophils % 0.5 % (0.0-0.8); Eosinophils # 0.1 10*3/uL (0.0-0.87); Eosinophils % 2.8 % (0.00-10.9); Hematocrit 38.5 VOL% (42.0-52.0); Hemoglobin 12.6 GM/DL (14.0-18.0); Immature Granulocytes % 0.2 %; Immature Granulocytes Absolute 0.01 #; Lymphocytes # 2.5 10*3/uL (1.4-4.0); Lymphocytes % 57.1 % (21.2-54.2); Mean Corpuscular HGB Conc 32.7 GM/DL (32-36); Mean Corpuscular Volume 102.4 FL (87-102); Mean Platelet Volume 9.6 FL (9.6-12.0); Monocytes % 7.7 % (1.7-12.7); NRBC # 0.02 10*3/uL; Neutrophils % 31.7 % (38.7-73.9); Platelet Count 179 T/CUMM (130-400); Red Blood Count 3.76 MC/CUMM (3.8-5.5); Red Cell Distribution Width 13.5 % (9.3-17.3); White Blood Count 4.3 T/CUMM (4-12)
[2019-02-06 05:43] LABS: Alanine Aminotransferase 28 U/L (16-61); Albumin 3.3 G/DL (3.4-5.0); Alkaline Phosphatase 63 U/L (45-117); Aspartate Amino Transferase 42 U/L (0-37); Bilirubin,Total < 0.39 MG/DL (0.2-1.0); Blood Urea Nitrogen 7 MG/DL (7-18); Calcium 8.4 MG/DL (8.5-10.1); Glucose 81 MG/DL (74-106); Total Protein 7.9 G/DL (6.4-8.3)
[2019-02-06 05:44] LABS: Eosinophils 1 % (0-10); Lymphocytes 60 % (20-55); Segmented Neutrophils 34 % (50-85); Total Cells Counted 100
[2019-02-06 05:45] LABS: Anisocytosis 1+; Platelet Estimate Adequate; Target Cells Few
[2019-02-06 06:00] LABS: PT Patient Result 10.6 SECS; Partial Thromboplastin Time 26.8 SECS (0-40)
[2019-02-06] MEDS ORDERED: NITROGLYCERIN SL 0.4 MG TABLET SL PRN (10:02)
[2019-02-06] MEDS ORDERED: DILTIAZEM CD 120 MG CAPSULE PO STA (10:34)
[2019-02-06] MEDS ORDERED: DILTIAZEM 50 MG/10 ML VIAL IV STA (10:34)
[2019-02-06] MEDS ORDERED: POTASSIUM CHLORIDE 20 MEQ TABLET PO PRN (10:36)
[2019-02-06] MEDS ORDERED: MORPHINE 4 MG/1 ML VIAL IV PRN (10:36)
[2019-02-06] MEDS ORDERED: MAGNESIUM SULF RIDER 2 GM in PREMIX 1 EACH IV PRN (10:36)
[2019-02-06] MEDS ORDERED: MAGNESIUM SULF RIDER 4 GM in PREMIX 1 EACH IV PRN (10:36)
[2019-02-06] MEDS ORDERED: ONDANSETRON 4 MG/2 ML VIAL IV PRN (10:36)
[2019-02-06] MEDS: SODIUM CHLORIDE 0.45% 1,000 ML IV SCH ×2 (11:34→21:49)
[2019-02-06] MEDS ORDERED: traMADol 50 MG TABLET PO PRN (12:40)
[2019-02-06] MEDS: CYCLOBENZAPRINE 10 MG TABLET PO SCH ×2 (15:24→21:49)
[2019-02-06] MEDS ORDERED: SKIN HEALING OINT (AQUAPHOR) 50 GM TUBE TOP PRN (16:11)
[2019-02-06 19:58] LABS: Troponin I < 0.015 NG/ML (0.00-0.045)
[2019-02-06] MEDS ORDERED: SKIN HEALING OINT (AQUAPHOR) 50 GM TUBE TOP SCH (21:00)
[2019-02-06] MEDS ORDERED: ASPIRIN CHEW 81 MG TABLET PO ONE (21:03)
[2019-02-06] MEDS: APIXABAN 5 MG TABLET PO SCH (21:48)
[2019-02-06] MEDS: ACETAMINOPHEN 325 MG TABLET PO SCH (21:48)
[2019-02-06] MEDS: LISINOPRIL 5 MG TABLET PO SCH (21:48)
[2019-02-06] MEDS: METOPROLOL TARTRATE 100 MG TABLET PO SCH (21:48)
[2019-02-06] MEDS: PANTOPRAZOLE 40 MG TABLET PO SCH (21:48)
[2019-02-07] MEDS: SODIUM CHLORIDE 0.45% 1,000 ML IV SCH (03:55)
[2019-02-07 06:32] LABS: Risk Ratio 2.4; VLDL CHOLESTEROL 14.2 MG/DL
[2019-02-07] MEDS ORDERED: Vitamin E 100 UNIT PO SCH (09:00)
[2019-02-07] MEDS ORDERED: REGADENOSON 0.4 MG/5 ML SYRINGE IV ONE (09:14)
[2019-02-07] MEDS: METOPROLOL TARTRATE 100 MG TABLET PO SCH ×2 (10:20→21:42)
[2019-02-07] MEDS: DILTIAZEM CD 120 MG CAPSULE PO SCH (10:20)
[2019-02-07] MEDS: LISINOPRIL 5 MG TABLET PO SCH ×2 (10:20→21:42)
[2019-02-07] MEDS: ACETAMINOPHEN 325 MG TABLET PO SCH ×2 (10:21→21:42)
[2019-02-07] MEDS: APIXABAN 5 MG TABLET PO SCH (10:21)
[2019-02-07] MEDS: PANTOPRAZOLE 40 MG TABLET PO SCH (10:21)
[2019-02-07] MEDS: CYCLOBENZAPRINE 10 MG TABLET PO SCH ×3 (10:21→21:42)
[2019-02-07] MEDS ORDERED: CLOPIDOGREL 75 MG TABLET PO ONE (14:01)
[2019-02-07] MEDS ORDERED: POTASSIUM CHLORIDE RIDER 10 MEQ in PREMIX 1 EACH IV PRN ×2 (14:03→16:25)
[2019-02-07] MEDS ORDERED: MAGNESIUM SULF RIDER 2 GM in PREMIX 1 EACH IV PRN ×2 (14:03→16:25)
[2019-02-07] MEDS ORDERED: diphenhydrAMINE CAP 25 MG CAPSULE PO ONE (14:03)
[2019-02-07] MEDS ORDERED: DIAZEPAM 5 MG TABLET PO ONE (14:03)
[2019-02-07] MEDS: GABAPENTIN 100 MG CAPSULE PO SCH (21:42)
[2019-02-08 04:57] LABS: Eosinophils % 4.3 % (0.00-10.9); Hematocrit 35.8 VOL% (42.0-52.0); Hemoglobin 11.9 GM/DL (14.0-18.0); Lymphocytes % 48.4 % (21.2-54.2); Mean Corpuscular HGB Conc 33.2 GM/DL (32-36); Mean Corpuscular Volume 100.8 FL (87-102); Mean Platelet Volume 10.2 FL (9.6-12.0); Neutrophils % 35.3 % (38.7-73.9); Platelet Count 165 T/CUMM (130-400); Red Blood Count 3.55 MC/CUMM (3.8-5.5); White Blood Count 4.4 T/CUMM (4-12)
[2019-02-08 04:58] LABS: Basophils % 0.5 % (0.0-0.8); Eosinophils # 0.2 10*3/uL (0.0-0.87); Immature Granulocytes % 0.5 %; Immature Granulocytes Absolute 0.02 #; Lymphocytes # 2.1 10*3/uL (1.4-4.0); NRBC # 0.03 10*3/uL
[2019-02-08 05:21] LABS: Atypical Lymphocytes Few; Eosinophils 6 % (0-10); Hypochromasia 1+; Lymphocytes 46 % (20-55); Nucleated Red Blood Cells 1 (0-5); Platelet Estimate Normal; Segmented Neutrophils 35 % (50-85); Total Cells Counted 100
[2019-02-08 05:23] LABS: Calcium 8.8 MG/DL (8.5-10.1)
[2019-02-08] MEDS ORDERED: SODIUM CHLORIDE 0.9% 1,000 ML IV SCH (07:00)
[2019-02-08] MEDS: LISINOPRIL 5 MG TABLET PO SCH ×2 (09:25→21:14)
[2019-02-08] MEDS: DILTIAZEM CD 120 MG CAPSULE PO SCH (09:25)
[2019-02-08] MEDS: ACETAMINOPHEN 325 MG TABLET PO SCH ×2 (09:25→21:13)
[2019-02-08] MEDS: MULTIVITAMIN (OCUVITE) TABLET PO SCH (09:25)
[2019-02-08] MEDS: CYCLOBENZAPRINE 10 MG TABLET PO SCH ×3 (09:25→21:14)
[2019-02-08] MEDS: METOPROLOL TARTRATE 100 MG TABLET PO SCH ×2 (09:25→21:14)
[2019-02-08] MEDS: PANTOPRAZOLE 40 MG TABLET PO SCH (09:25)
[2019-02-08] MEDS: GABAPENTIN 100 MG CAPSULE PO SCH ×3 (09:29→21:14)
[2019-02-08] MEDS ORDERED: DIAZEPAM 5 MG TABLET ONE (13:09)
[2019-02-08] MEDS ORDERED: diphenhydrAMINE CAP 25 MG CAPSULE ONE (13:09)
[2019-02-08] MEDS ORDERED: LIDOCAINE 1% 20 ML VIAL ONE (15:05)
[2019-02-08] MEDS ORDERED: fentaNYL 100 MCG/2 ML VIAL ONE (15:05)
[2019-02-08] MEDS ORDERED: MIDAZOLAM 2 MG/2 ML VIAL ONE (15:05)
[2019-02-08] MEDS ORDERED: HEPARIN 5,000 UNIT/1 ML VIAL ONE (15:18)
[2019-02-09 05:41] LABS: Basophils % 0.5 % (0.0-0.8); Eosinophils # 0.2 10*3/uL (0.0-0.87); Eosinophils % 4.1 % (0.00-10.9); Hemoglobin 11.6 GM/DL (14.0-18.0); Immature Granulocytes % 0.3 %; Immature Granulocytes Absolute 0.01 #; Lymphocytes % 50.8 % (21.2-54.2); Mean Corpuscular HGB Conc 32.2 GM/DL (32-36); Mean Corpuscular Volume 102.9 FL (87-102); Mean Platelet Volume 10.5 FL (9.6-12.0); Monocytes % 11.5 % (1.7-12.7); Neutrophils % 32.8 % (38.7-73.9); Platelet Count 161 T/CUMM (130-400); Red Cell Distribution Width 13.5 % (9.3-17.3); White Blood Count 3.9 T/CUMM (4-12)
[2019-02-09 06:03] LABS: Eosinophils 3 % (0-10); Hypochromasia 1+; Lymphocytes 57 % (20-55); Nucleated Red Blood Cells 1 (0-5); Platelet Estimate Adequate; Segmented Neutrophils 33 % (50-85); Total Cells Counted 100
[2019-02-09 06:04] LABS: Atypical Lymphocytes Few
[2019-02-09 06:11] LABS: Calcium 8.6 MG/DL (8.5-10.1); Osmolality,Calculated 271.8 MOS/KG (273-304)
[2019-02-09 08:24] VITALS: BP 106/74
[2019-02-09] MEDS ORDERED: CLOPIDOGREL 75 MG TABLET PO SCH (09:00)
[2019-02-09] MEDS: LISINOPRIL 5 MG TABLET PO SCH (09:18)
[2019-02-09] MEDS: MULTIVITAMIN (OCUVITE) TABLET PO SCH (09:18)
[2019-02-09] MEDS: ACETAMINOPHEN 325 MG TABLET PO SCH (09:18)
[2019-02-09] MEDS: DILTIAZEM CD 120 MG CAPSULE PO SCH (09:19)
[2019-02-09] MEDS: CYCLOBENZAPRINE 10 MG TABLET PO SCH (09:19)
[2019-02-09] MEDS: GABAPENTIN 100 MG CAPSULE PO SCH (09:19)
[2019-02-09] MEDS: METOPROLOL TARTRATE 100 MG TABLET PO SCH (09:19)
[2019-02-09] MEDS: PANTOPRAZOLE 40 MG TABLET PO SCH (09:20)
[2019-02-09] MEDS ORDERED: SIMVASTATIN 10 MG TABLET PO SCH (21:00)
[2019-02-11] MEDS ORDERED: APIXABAN 5 MG TABLET PO SCH (09:00)
== END 2019-02-09 10:20 | disposition home or self-care (01) | DRG 287 ==
LOC: EDBD → EDUNIT# → N.ED 04:52 → N.EDINP 10:36 → N.TELEN 11:58
PROVIDERS: ADMIT Internal Medicine Cardiovascular Disease; ATTEND Internal Medicine Cardiovascular Disease
PROC: CLCCHCL (ICD-10-PCS; 2019-02-08 16:15)

== ENCOUNTER 2021-10-19 23:07 | Inpatient (IN) ==
[2021-10-19] MEDS ORDERED: MORPHINE 2 MG/1 ML SYRINGE IV STA (23:46)
[2021-10-19] MEDS ORDERED: SODIUM CHLORIDE 0.9% 1,000 ML IV STA (23:46)
[2021-10-19] MEDS ORDERED: ONDANSETRON ODT 4 MG TABLET PO STA (23:46)
[2021-10-20 00:37] LABS: Basophils % 0.6 % (0.0-0.8); Eosinophils # 0.3 10*3/uL (0.0-0.87); Eosinophils % 6.3 % (0.00-10.9); Hematocrit 35.8 VOL% (42.0-52.0); Hemoglobin 12.3 GM/DL (14.0-18.0); Immature Granulocytes % 0.6 %; Immature Granulocytes Absolute 0.03 #; Lymphocytes # 1.7 10*3/uL (1.4-4.0); Lymphocytes % 35.3 % (21.2-54.2); Mean Corpuscular HGB Conc 34.4 GM/DL (32-36); Mean Corpuscular Volume 101.1 FL (87-102); Mean Platelet Volume 10.1 FL (9.6-12.0); Monocytes # 0.6 10*3/uL (0.11-0.8); Monocytes % 11.2 % (1.7-12.7); NRBC # 0.04 10*3/uL; PT Patient Result 11.4 SECS (10.5-12.0); Platelet Count 183 T/CUMM (130-400); Red Blood Count 3.54 MC/CUMM (3.8-5.5); Red Cell Distribution Width 14.6 % (9.3-17.3); White Blood Count 4.9 T/CUMM (4-12)
[2021-10-20 00:38] LABS: Alanine Aminotransferase 32 U/L (16-61); Alkaline Phosphatase 62 U/L (45-117); Aspartate Amino Transferase 65 U/L (0-37); Bilirubin,Total < 0.39 MG/DL (0.20-1.00); Blood Urea Nitrogen 8 MG/DL (7-18); Calcium 7.9 MG/DL (8.5-10.1); Carbon Dioxide 24 MMOL/L (21-32); Chloride 108 MMOL/L (98-107); Estimated Glom Filtration Rate 185 ML/MIN; Glucose 77 MG/DL (74-106); Osmolality,Calculated 277.3 MOS/KG (273-304); Sodium 141 MMOL/L (136-145); Total Protein 7.3 G/DL (6.4-8.2)
[2021-10-20] MEDS ORDERED: SODIUM CHLORIDE 0.9% 2,000 ML IV STA (01:07)
[2021-10-20] MEDS ORDERED: DILTIAZEM 50 MG/10 ML VIAL IV STA (01:21)
[2021-10-20 02:48] LABS: Hyaline Casts,Urine 1 /LPF (0-3); Mucus,Urine Occasional /LPF (Occasional); RBC,Urine 2 /HPF (0-4); Squamous Epithelial Cell,Urine Occasional /HPF (0-10)
[2021-10-20 02:50] LABS: Urine Appearance Clear (Clear); Urine Color Yellow (Yellow)
[2021-10-20 02:51] LABS: Bilirubin,Urine Negative (Negative); Blood, Urine Negative (Negative); Glucose,Urine (UA) Negative (Negative); Ketones,Urine Trace mg/dL (Negative); Nitrite,Urine Negative (Negative); Protein,Urine Negative (Negative); Urine Specific Gravity >= 1.030 (1.001-1.035); Urine pH 5.5 (4.5-8.0)
[2021-10-20] MEDS ORDERED: LEVOFLOXACIN INJ 500 MG/100 ML PREMIX IV ONE (03:19)
[2021-10-20] MEDS ORDERED: HYDROmorphone 1 MG/1 ML SYRINGE IV STA (03:19)
[2021-10-20] MEDS: DILTIAZEM INJ 100 MG in SODIUM CHLORIDE 0.9% 100 ML IV SCH (03:20)
[2021-10-20] MEDS ORDERED: DILTIAZEM INJ 100 MG in SODIUM CHLORIDE 0.9% 100 ML IV SCH ×2 (03:30→11:30)
[2021-10-20 04:29] LABS: Barbiturates Screen,Urine Negative (Negative); Benzodiazepines Screen,Urine Negative (Negative); Cannabinoid Screen,Urine Negative (Negative); Opiate Screen,Urine Positive (Negative); Phencyclidine Screen,Urine Negative (Negative)
[2021-10-20] MEDS ORDERED: DEXTROSE 10% 250 ML BAG IV PRN (04:31)
[2021-10-20] MEDS ORDERED: hydrALAZINE 20 MG/1 ML VIAL IV PRN (04:31)
[2021-10-20] MEDS ORDERED: ACETAMINOPHEN 325 MG TABLET PO PRN (04:31)
[2021-10-20] MEDS ORDERED: MAGNESIUM SULF RIDER 2 GM/50 ML PREMIX IV ONE (04:31)
[2021-10-20] MEDS ORDERED: GLUCAGON 1 MG VIAL IM PRN (04:31)
[2021-10-20] MEDS ORDERED: ONDANSETRON 4 MG/2 ML VIAL IV PRN (04:31)
[2021-10-20] MEDS ORDERED: ENOXAPARIN 100 MG/ML SYRINGE SUBCUT SCH (07:00)
[2021-10-20] MEDS: LEVALBUTEROL 1.25 MG/3 ML NEB RESP TX SCH ×3 (07:30→19:12)
[2021-10-20] MEDS: IPRATROPIUM 500 MCG/2.5 ML NEB RESP TX SCH ×3 (07:30→19:12)
[2021-10-20] MEDS ORDERED: APIXABAN 5 MG TABLET PO SCH (09:00)
[2021-10-20] MEDS: PANTOPRAZOLE 40 MG TABLET PO SCH (11:00)
[2021-10-20] MEDS: DILTIAZEM CD 120 MG CAPSULE PO SCH (11:00)
[2021-10-20] MEDS: BISOPROLOL 5 MG TABLET PO SCH (12:32)
[2021-10-20] MEDS ORDERED: HydrOXYzine PAMOATE 50 MG CAPSULE PO PRN (13:48)
[2021-10-20] MEDS: cefTRIAXone 2,000 MG in SODIUM CHLORIDE 0.9% 100 ML IV SCH (14:54)
[2021-10-20] MEDS: FUROSEMIDE 40 MG/4 ML VIAL IV SCH (14:54)
[2021-10-20] MEDS: HYDROmorphone 1 MG/1 ML SYRINGE IV PRN ×2 (18:23→21:22)
[2021-10-20] MEDS: HydrOXYzine PAMOATE 25 MG CAPSULE PO PRN (18:24)
[2021-10-20] MEDS: ENOXAPARIN 100 MG/ML SYRINGE SUBCUT SCH (20:31)
[2021-10-20] MEDS: LORazepam 2 MG/1 ML VIAL IV PRN (22:07)
[2021-10-20] MEDS: SKIN HEALING OINT (AQUAPHOR) 50 GM TUBE TOP PRN (22:45)
[2021-10-21] MEDS: IPRATROPIUM 500 MCG/2.5 ML NEB RESP TX SCH ×4 (00:17→19:45)
[2021-10-21] MEDS: LEVALBUTEROL 1.25 MG/3 ML NEB RESP TX SCH ×4 (00:18→19:45)
[2021-10-21] MEDS: DILTIAZEM INJ 100 MG in SODIUM CHLORIDE 0.9% 100 ML IV SCH (02:08)
[2021-10-21 04:26] LABS: Basophils % 0.5 % (0.0-0.8); Eosinophils # 0.3 10*3/uL (0.0-0.87); Eosinophils % 7.5 % (0.00-10.9); Hematocrit 35.4 VOL% (42.0-52.0); Hemoglobin 12.3 GM/DL (14.0-18.0); Immature Granulocytes % 0.5 %; Immature Granulocytes Absolute 0.02 #; Lymphocytes # 1.7 10*3/uL (1.4-4.0); Lymphocytes % 38.4 % (21.2-54.2); Mean Corpuscular HGB Conc 34.7 GM/DL (32-36); Mean Platelet Volume 10.2 FL (9.6-12.0); Monocytes # 0.5 10*3/uL (0.11-0.8); Monocytes % 11.6 % (1.7-12.7); NRBC # 0.03 10*3/uL; Neutrophils % 41.5 % (38.7-73.9); Platelet Count 165 T/CUMM (130-400); Red Blood Count 3.47 MC/CUMM (3.8-5.5); Red Cell Distribution Width 14.7 % (9.3-17.3); White Blood Count 4.4 T/CUMM (4-12)
[2021-10-21] MEDS ORDERED: LEVOFLOXACIN INJ 500 MG/100 ML PREMIX IV SCH (05:00)
[2021-10-21] MEDS: DILTIAZEM CD 120 MG CAPSULE PO SCH (08:26)
[2021-10-21] MEDS: ENOXAPARIN 100 MG/ML SYRINGE SUBCUT SCH ×2 (08:27→21:30)
[2021-10-21] MEDS: BISOPROLOL 5 MG TABLET PO SCH (08:27)
[2021-10-21] MEDS: PANTOPRAZOLE 40 MG TABLET PO SCH (08:27)
[2021-10-21] MEDS: AZITHROMYCIN 250 MG TABLET PO SCH (08:27)
[2021-10-21] MEDS: FUROSEMIDE 40 MG/4 ML VIAL IV SCH (08:28)
[2021-10-21] MEDS: MAGNESIUM OXIDE 400 MG TABLET PO SCH ×2 (09:05→21:30)
[2021-10-21] MEDS ORDERED: DIGOXIN 0.5 MG/2 ML AMP IV ONE (10:42)
[2021-10-21] MEDS: cefTRIAXone 2,000 MG in SODIUM CHLORIDE 0.9% 100 ML IV SCH (13:38)
[2021-10-21] MEDS: HydrOXYzine PAMOATE 25 MG CAPSULE PO PRN (18:08)
[2021-10-21] MEDS: HYDROmorphone 1 MG/1 ML SYRINGE IV PRN (19:53)
[2021-10-21] MEDS: SKIN HEALING OINT (AQUAPHOR) 50 GM TUBE TOP PRN (19:57)
[2021-10-21] MEDS ORDERED: ZALEPLON 5 MG CAPSULE PO ONE (21:08)
[2021-10-21] MEDS: ASCORBIC ACID 500 MG TABLET PO SCH (21:30)
[2021-10-22] MEDS: HYDROmorphone 1 MG/1 ML SYRINGE IV PRN ×2 (01:29→21:05)
[2021-10-22] MEDS: LEVALBUTEROL 1.25 MG/3 ML NEB RESP TX SCH ×5 (01:50→23:46)
[2021-10-22] MEDS: IPRATROPIUM 500 MCG/2.5 ML NEB RESP TX SCH ×5 (01:50→23:45)
[2021-10-22] MEDS: DILTIAZEM INJ 100 MG in SODIUM CHLORIDE 0.9% 100 ML IV SCH ×2 (03:00→05:20)
[2021-10-22 04:25] LABS: Basophils % 0.6 % (0.0-0.8); Eosinophils # 0.4 10*3/uL (0.0-0.87); Eosinophils % 8.4 % (0.00-10.9); Hemoglobin 12.4 GM/DL (14.0-18.0); Immature Granulocytes % 0.8 %; Immature Granulocytes Absolute 0.04 #; Lymphocytes # 2.1 10*3/uL (1.4-4.0); Lymphocytes % 39.2 % (21.2-54.2); Mean Corpuscular HGB Conc 34.4 GM/DL (32-36); Mean Corpuscular Volume 101.1 FL (87-102); Mean Platelet Volume 10.3 FL (9.6-12.0); Monocytes # 0.7 10*3/uL (0.11-0.8); Monocytes % 13.3 % (1.7-12.7); NRBC # 0.04 10*3/uL; Neutrophils % 37.7 % (38.7-73.9); Platelet Count 189 T/CUMM (130-400); Red Blood Count 3.56 MC/CUMM (3.8-5.5); Red Cell Distribution Width 14.6 % (9.3-17.3); White Blood Count 5.3 T/CUMM (4-12)
[2021-10-22 04:44] LABS: Calcium 8.2 MG/DL (8.5-10.1); Osmolality,Calculated 275.5 MOS/KG (273-304); Potassium 3.7 MMOL/L (3.5-5.1)
[2021-10-22 04:57] LABS: Eosinophils 10 % (0-10); Hypochromia Slight; Lymphocytes 34 % (20-55); Microcytosis Slight; Nucleated Red Blood Cells 2 (0-5); Platelet Estimate Adequate; Total Cells Counted 100
[2021-10-22] MEDS: FUROSEMIDE 40 MG/4 ML VIAL IV SCH (08:14)
[2021-10-22] MEDS: MAGNESIUM OXIDE 400 MG TABLET PO SCH ×2 (08:17→20:58)
[2021-10-22] MEDS: DILTIAZEM CD 120 MG CAPSULE PO SCH (08:17)
[2021-10-22] MEDS: ENOXAPARIN 100 MG/ML SYRINGE SUBCUT SCH ×2 (08:17→20:58)
[2021-10-22] MEDS: BISOPROLOL 5 MG TABLET PO SCH (08:18)
[2021-10-22] MEDS: ASCORBIC ACID 500 MG TABLET PO SCH ×2 (08:18→20:58)
[2021-10-22] MEDS: AZITHROMYCIN 250 MG TABLET PO SCH (08:18)
[2021-10-22] MEDS: PANTOPRAZOLE 40 MG TABLET PO SCH (08:18)
[2021-10-22] MEDS ORDERED: METOPROLOL TARTRATE 5 MG/5 ML VIAL IV ONE (09:12)
[2021-10-22] MEDS ORDERED: MAGNESIUM SULF RIDER 2 GM/50 ML PREMIX IV ONE (09:14)
[2021-10-22] MEDS ORDERED: POTASSIUM CHLORIDE 20 MEQ TABLET PO ONE (09:14)
[2021-10-22] MEDS ORDERED: BISOPROLOL 5 MG TABLET PO ONE (09:15)
[2021-10-22] MEDS ORDERED: SODIUM CHLORIDE 0.45% 1,000 ML IV SCH (11:00)
[2021-10-22] MEDS: cefTRIAXone 2,000 MG in SODIUM CHLORIDE 0.9% 100 ML IV SCH (14:11)
[2021-10-22] MEDS ORDERED: ZOLPIDEM 5 MG TABLET PO ONE (20:49)
[2021-10-23] MEDS: HydrOXYzine PAMOATE 25 MG CAPSULE PO PRN ×3 (01:54→21:18)
[2021-10-23] MEDS: HYDROmorphone 1 MG/1 ML SYRINGE IV PRN (02:01)
[2021-10-23 04:50] LABS: Basophils % 0.7 % (0.0-0.8); Eosinophils # 0.5 10*3/uL (0.0-0.87); Eosinophils % 11.5 % (0.00-10.9); Hematocrit 36.1 VOL% (42.0-52.0); Hemoglobin 12.3 GM/DL (14.0-18.0); Immature Granulocytes % 0.5 %; Immature Granulocytes Absolute 0.02 #; Lymphocytes # 1.6 10*3/uL (1.4-4.0); Lymphocytes % 37.5 % (21.2-54.2); Mean Corpuscular HGB Conc 34.1 GM/DL (32-36); Mean Corpuscular Volume 102.8 FL (87-102); Mean Platelet Volume 10.4 FL (9.6-12.0); Monocytes # 0.7 10*3/uL (0.11-0.8); Monocytes % 17.3 % (1.7-12.7); Neutrophils % 32.5 % (38.7-73.9); Platelet Count 211 T/CUMM (130-400); Red Blood Count 3.51 MC/CUMM (3.8-5.5); Red Cell Distribution Width 14.8 % (9.3-17.3); White Blood Count 4.3 T/CUMM (4-12)
[2021-10-23 05:06] LABS: Calcium 8.3 MG/DL (8.5-10.1)
[2021-10-23 05:20] LABS: Eosinophils 12 % (0-10); Hypochromia Slight; Lymphocytes 47 % (20-55); Platelet Estimate Adequate; Total Cells Counted 100
[2021-10-23] MEDS: LEVALBUTEROL 1.25 MG/3 ML NEB RESP TX SCH ×4 (07:13→23:45)
[2021-10-23] MEDS: IPRATROPIUM 500 MCG/2.5 ML NEB RESP TX SCH ×4 (07:13→23:44)
[2021-10-23] MEDS: DILTIAZEM INJ 100 MG in SODIUM CHLORIDE 0.9% 100 ML IV SCH (07:35)
[2021-10-23] MEDS: ENOXAPARIN 100 MG/ML SYRINGE SUBCUT SCH (08:39)
[2021-10-23] MEDS: BISOPROLOL 5 MG TABLET PO SCH (08:39)
[2021-10-23] MEDS: ASCORBIC ACID 500 MG TABLET PO SCH ×2 (08:39→21:19)
[2021-10-23] MEDS: PANTOPRAZOLE 40 MG TABLET PO SCH (08:40)
[2021-10-23] MEDS: MAGNESIUM OXIDE 400 MG TABLET PO SCH ×2 (08:40→21:19)
[2021-10-23] MEDS: AZITHROMYCIN 250 MG TABLET PO SCH (08:40)
[2021-10-23] MEDS: DILTIAZEM CD 240 MG CAPSULE PO SCH (08:40)
[2021-10-23] MEDS ORDERED: SODIUM CHLORIDE 0.45% 1,000 ML IV SCH (09:00)
[2021-10-23] MEDS: cefTRIAXone 2,000 MG in SODIUM CHLORIDE 0.9% 100 ML IV SCH (14:02)
[2021-10-23] MEDS: APIXABAN 5 MG TABLET PO SCH (21:20)
[2021-10-23] MEDS: LORazepam 2 MG/1 ML VIAL IV PRN (21:29)
[2021-10-24] MEDS: HydrOXYzine PAMOATE 25 MG CAPSULE PO PRN ×2 (02:59→08:31)
[2021-10-24 05:03] LABS: Basophils % 0.4 % (0.0-0.8); Eosinophils # 0.4 10*3/uL (0.0-0.87); Eosinophils % 8.1 % (0.00-10.9); Hemoglobin 11.2 GM/DL (14.0-18.0); Immature Granulocytes % 0.7 %; Immature Granulocytes Absolute 0.03 #; Lymphocytes % 45.4 % (21.2-54.2); Mean Corpuscular HGB Conc 33.9 GM/DL (32-36); Mean Corpuscular Volume 103.1 FL (87-102); Mean Platelet Volume 9.8 FL (9.6-12.0); Monocytes # 0.8 10*3/uL (0.11-0.8); Neutrophils % 28.4 % (38.7-73.9); Platelet Count 199 T/CUMM (130-400); Red Cell Distribution Width 14.6 % (9.3-17.3); White Blood Count 4.5 T/CUMM (4-12)
[2021-10-24 05:14] LABS: Calcium 7.8 MG/DL (8.5-10.1); Osmolality,Calculated 278.5 MOS/KG (273-304)
[2021-10-24 06:05] LABS: Anisocytosis 1+; Eosinophils 2 % (0-10); Lymphocytes 47 % (20-55); Macrocytosis 1+; Metamyelocytes 1 %; Platelet Estimate Normal; Target Cells Few; Total Cells Counted 100
[2021-10-24 06:06] LABS: Smudge Cells Few
[2021-10-24] MEDS: LEVALBUTEROL 1.25 MG/3 ML NEB RESP TX SCH (07:15)
[2021-10-24 08:06] VITALS: BP 103/77
[2021-10-24] MEDS: BISOPROLOL 5 MG TABLET PO SCH (08:30)
[2021-10-24] MEDS: AZITHROMYCIN 250 MG TABLET PO SCH (08:31)
[2021-10-24] MEDS: APIXABAN 5 MG TABLET PO SCH (08:31)
[2021-10-24] MEDS: MAGNESIUM OXIDE 400 MG TABLET PO SCH (08:31)
[2021-10-24] MEDS: ASCORBIC ACID 500 MG TABLET PO SCH (08:31)
[2021-10-24] MEDS: DILTIAZEM CD 240 MG CAPSULE PO SCH (08:31)
[2021-10-24] MEDS: PANTOPRAZOLE 40 MG TABLET PO SCH (08:32)
== END 2021-10-24 10:40 | disposition home or self-care (01) | DRG 308 ==
LOC: EDUNIT# → N.ED 23:07 → SUATTDRO 10-20 04:31 → N.EDINP 10-20 04:31 → N.CC 10-20 14:50 → N.TELEN 10-23 01:45
PROVIDERS: ADMIT Emergency Medicine; ATTEND Internal Medicine

== ENCOUNTER 2022-02-22 18:48 | Inpatient (IN) ==
[2022-02-22] MEDS ORDERED: SODIUM CHLORIDE 0.9% 1,000 ML IV STA (19:55)
[2022-02-22] MEDS ORDERED: DILTIAZEM 25 MG/5 ML VIAL IV STA (20:09)
[2022-02-22 20:54] LABS: Basophils % 0.7 % (0.0-0.8); Eosinophils # 0.3 10*3/uL (0.0-0.87); Eosinophils % 5.4 % (0.00-10.9); Hematocrit 42.8 VOL% (42.0-52.0); Hemoglobin 14.5 GM/DL (14.0-18.0); Immature Granulocytes % 0.3 %; Immature Granulocytes Absolute 0.02 #; Lymphocytes # 2.2 10*3/uL (1.4-4.0); Lymphocytes % 38.6 % (21.2-54.2); Mean Corpuscular HGB Conc 33.9 GM/DL (32-36); Mean Corpuscular Volume 100.5 FL (87-102); Mean Platelet Volume 9.6 FL (9.6-12.0); Monocytes # 0.5 10*3/uL (0.11-0.8); Monocytes % 8.1 % (1.7-12.7); NRBC # 0.03 10*3/uL; Neutrophils % 46.9 % (38.7-73.9); Platelet Count 204 T/CUMM (130-400); Red Blood Count 4.26 MC/CUMM (3.8-5.5); Red Cell Distribution Width 15.6 % (9.3-17.3); White Blood Count 5.8 T/CUMM (4-12)
[2022-02-22 21:01] LABS: INR 0.9; PT Patient Result 10.4 SECS (10.1-12.1)
[2022-02-22 21:08] LABS: Alanine Aminotransferase 30 U/L (16-61); Albumin 2.9 G/DL (3.4-5.0); Alkaline Phosphatase 84 U/L (45-117); Aspartate Amino Transferase 56 U/L (0-37); Bilirubin,Total < 0.39 MG/DL (0.20-1.00); Blood Urea Nitrogen 8 MG/DL (7-18); Calcium 8.1 MG/DL (8.5-10.1); Carbon Dioxide 24 MMOL/L (21-32); Chloride 109 MMOL/L (98-107); Glucose 76 MG/DL (74-106); Osmolality,Calculated 277.3 MOS/KG (273-304); Potassium 3.8 MMOL/L (3.5-5.1); Sodium 141 MMOL/L (136-145); Total Protein 7.9 G/DL (6.4-8.2)
[2022-02-22] MEDS: DILTIAZEM INJ 100 MG in SODIUM CHLORIDE 0.9% 100 ML IV SCH (21:12)
[2022-02-22] MEDS ORDERED: MORPHINE 2 MG/1 ML SYRINGE IV PRN (22:16)
[2022-02-22] MEDS ORDERED: ACETAMINOPHEN 325 MG TABLET PO PRN (22:16)
[2022-02-22] MEDS ORDERED: NICOTINE 21 MG/24 HR PATCH TRANSDERM PRN (22:16)
[2022-02-22] MEDS ORDERED: hydrALAZINE 20 MG/1 ML VIAL IV PRN (22:16)
[2022-02-22] MEDS ORDERED: GLUCAGON 1 MG VIAL IM PRN (22:16)
[2022-02-22] MEDS ORDERED: POTASSIUM CHLORIDE 20 MEQ TABLET PO STA (22:16)
[2022-02-22] MEDS ORDERED: LACTATED RINGERS 1,000 ML IV SCH (22:30)
[2022-02-22] MEDS ORDERED: DEXTROSE 10% 250 ML BAG IV PRN (22:32)
[2022-02-23] MEDS ORDERED: DIAZEPAM 10 MG/2 ML SYRINGE IV PRN (01:19)
[2022-02-23] MEDS: diphenhydrAMINE CAP 25 MG CAPSULE PO PRN (04:52)
[2022-02-23 06:15] LABS: Calcium 7.4 MG/DL (8.5-10.1); Osmolality,Calculated 272.5 MOS/KG (273-304); Potassium 4.2 MMOL/L (3.5-5.1); Thyroid Stimulating Hormone 9.41 uIU/ml (0.358-3.74)
[2022-02-23 07:40] LABS: Free T4 (Free Thyroxine) 0.69 NG/DL (0.76-1.46)
[2022-02-23] MEDS: MULTIVITAMIN (CENTRUM) TABLET PO SCH (08:28)
[2022-02-23] MEDS: THIAMINE 100 MG TABLET PO SCH (08:28)
[2022-02-23] MEDS: FOLIC ACID 1 MG TABLET PO SCH (08:28)
[2022-02-23] MEDS: APIXABAN 5 MG TABLET PO SCH ×2 (08:28→20:37)
[2022-02-23] MEDS: PANTOPRAZOLE 40 MG TABLET PO SCH (08:28)
[2022-02-23] MEDS: BISOPROLOL 5 MG TABLET PO SCH (10:37)
[2022-02-23] MEDS: ASCORBIC ACID 500 MG TABLET PO SCH ×2 (10:37→20:37)
[2022-02-23] MEDS ORDERED: SKIN HEALING OINT (AQUAPHOR) 50 GM TUBE TOP PRN (10:37)
[2022-02-23] MEDS: DILTIAZEM CD 240 MG CAPSULE PO SCH (10:37)
[2022-02-23] MEDS: DILTIAZEM INJ 100 MG in SODIUM CHLORIDE 0.9% 100 ML IV SCH ×2 (10:39→17:25)
[2022-02-23] MEDS: ALBUTEROL/IPRATROPIUM 3 ML NEB RESP TX SCH ×2 (16:21→19:38)
[2022-02-23] MEDS: SIMVASTATIN 10 MG TABLET PO SCH (20:37)
[2022-02-23] MEDS: KETOROLAC 30 MG/1 ML VIAL IV PRN (20:44)
[2022-02-24] MEDS: ALBUTEROL/IPRATROPIUM 3 ML NEB RESP TX SCH ×4 (00:17→19:20)
[2022-02-24 05:15] LABS: Basophils % 0.7 % (0.0-0.8); Eosinophils # 0.4 10*3/uL (0.0-0.87); Eosinophils % 7.4 % (0.00-10.9); Hematocrit 34.6 VOL% (42.0-52.0); Immature Granulocytes % 0.4 %; Immature Granulocytes Absolute 0.02 #; Lymphocytes # 1.6 10*3/uL (1.4-4.0); Lymphocytes % 28.9 % (21.2-54.2); Mean Corpuscular HGB Conc 34.7 GM/DL (32-36); Mean Corpuscular Volume 100.3 FL (87-102); Mean Platelet Volume 10.7 FL (9.6-12.0); Monocytes # 0.5 10*3/uL (0.11-0.8); Monocytes % 7.9 % (1.7-12.7); NRBC # 0.04 10*3/uL; Neutrophils % 54.7 % (38.7-73.9); Red Blood Count 3.45 MC/CUMM (3.8-5.5); Red Cell Distribution Width 15.4 % (9.3-17.3); White Blood Count 5.7 T/CUMM (4-12)
[2022-02-24 05:16] LABS: Platelet Count 161 T/CUMM (130-400)
[2022-02-24] MEDS: KETOROLAC 30 MG/1 ML VIAL IV PRN (05:16)
[2022-02-24] MEDS: LEVOTHYROXINE 112 MCG TABLET PO SCH (06:12)
[2022-02-24] MEDS ORDERED: MAGNESIUM SULF RIDER 2 GM/50 ML PREMIX IV ONE (07:51)
[2022-02-24] MEDS: BISOPROLOL 5 MG TABLET PO SCH (09:11)
[2022-02-24] MEDS: MULTIVITAMIN (CENTRUM) TABLET PO SCH (09:11)
[2022-02-24] MEDS: predniSONE 20 MG TABLET PO SCH (09:11)
[2022-02-24] MEDS: APIXABAN 5 MG TABLET PO SCH (09:12)
[2022-02-24] MEDS: DILTIAZEM CD 240 MG CAPSULE PO SCH (09:12)
[2022-02-24] MEDS: ASCORBIC ACID 500 MG TABLET PO SCH ×2 (09:12→21:05)
[2022-02-24] MEDS: THIAMINE 100 MG TABLET PO SCH (09:12)
[2022-02-24] MEDS: FOLIC ACID 1 MG TABLET PO SCH (09:14)
[2022-02-24] MEDS: PANTOPRAZOLE 40 MG TABLET PO SCH (09:14)
[2022-02-24 15:56] LABS: Barbiturates Screen,Urine Negative (Negative); Benzodiazepines Screen,Urine Negative (Negative); Cannabinoid Screen,Urine Negative (Negative); Opiate Screen,Urine Positive (Negative); Phencyclidine Screen,Urine Negative (Negative)
[2022-02-24] MEDS: SIMVASTATIN 10 MG TABLET PO SCH (21:04)
[2022-02-24] MEDS: chlordiazePOXIDE 25 MG CAPSULE PO SCH (23:24)
[2022-02-25] MEDS: ALBUTEROL/IPRATROPIUM 3 ML NEB RESP TX SCH ×4 (00:08→19:33)
[2022-02-25] MEDS ORDERED: OLANZapine 10 MG VIAL IM ONE (00:23)
[2022-02-25] MEDS: chlordiazePOXIDE 25 MG CAPSULE PO SCH (06:04)
[2022-02-25] MEDS: LEVOTHYROXINE 112 MCG TABLET PO SCH (06:04)
[2022-02-25 06:36] LABS: Basophils % 0.5 % (0.0-0.8); Eosinophils # 0.2 10*3/uL (0.0-0.87); Hematocrit 36.5 VOL% (42.0-52.0); Hemoglobin 12.5 GM/DL (14.0-18.0); Immature Granulocytes % 0.5 %; Immature Granulocytes Absolute 0.04 #; Lymphocytes # 2.5 10*3/uL (1.4-4.0); Lymphocytes % 30.6 % (21.2-54.2); Mean Corpuscular HGB Conc 34.2 GM/DL (32-36); Mean Corpuscular Volume 99.5 FL (87-102); Mean Platelet Volume 10.3 FL (9.6-12.0); Monocytes # 0.7 10*3/uL (0.11-0.8); Monocytes % 8.4 % (1.7-12.7); NRBC # 0.05 10*3/uL; Platelet Count 162 T/CUMM (130-400); Red Blood Count 3.67 MC/CUMM (3.8-5.5); Red Cell Distribution Width 15.4 % (9.3-17.3); White Blood Count 8.1 T/CUMM (4-12)
[2022-02-25 06:53] LABS: Calcium 9.1 MG/DL (8.5-10.1); Osmolality,Calculated 266.2 MOS/KG (273-304); Potassium 3.6 MMOL/L (3.5-5.1)
[2022-02-25] MEDS: ENOXAPARIN 40 MG/0.4 ML SYRINGE SUBCUT SCH (11:07)
[2022-02-25] MEDS: DILTIAZEM CD 240 MG CAPSULE PO SCH (11:07)
[2022-02-25] MEDS: FOLIC ACID 1 MG TABLET PO SCH (11:07)
[2022-02-25] MEDS: predniSONE 20 MG TABLET PO SCH (11:07)
[2022-02-25] MEDS: MULTIVITAMIN (CENTRUM) TABLET PO SCH (11:07)
[2022-02-25] MEDS: PANTOPRAZOLE 40 MG TABLET PO SCH (11:07)
[2022-02-25] MEDS: THIAMINE 100 MG TABLET PO SCH (11:07)
[2022-02-25] MEDS: ASCORBIC ACID 500 MG TABLET PO SCH ×2 (11:07→21:21)
[2022-02-25] MEDS: BISOPROLOL 5 MG TABLET PO SCH (11:08)
[2022-02-25] MEDS: LORazepam 1 MG TABLET PO SCH ×3 (11:11→21:22)
[2022-02-25 12:18] LABS: Albumin 2.9 G/DL (3.4-5.0); Bilirubin,Direct 0.26 MG/DL (0.0-0.20); Bilirubin,Indirect 0.5 MG/DL (0.0-1.0); Bilirubin,Total 0.8 MG/DL (0.20-1.00); Total Protein 7.9 G/DL (6.4-8.2)
[2022-02-25 13:15] LABS: HIV Antigen/Antibody Result Nonreactive (Nonreactive)
[2022-02-25 14:16] LABS: Hepatitis B Core IgM Quant 0.14 Index; Hepatitis B Surface Ag Quant < 0.10 Index; Hepatitis B Surface Ag Result Non-Reactive (NonReactive); Hepatitis C Virus Ab Quant 0.09 Index; Hepatitis C Virus Ab Result Non-Reactive (NonReactive)
[2022-02-25 18:54] LABS: Mucus,Urine Occasional /LPF (Occasional); RBC,Urine <1 /HPF (0-4)
[2022-02-25 18:55] LABS: Bilirubin,Urine Negative (Negative); Blood, Urine Negative (Negative); Glucose,Urine (UA) Negative (Negative); Ketones,Urine 15 mg/dL (Negative); Nitrite,Urine Negative (Negative); Protein,Urine Trace mg/dL (Negative); Urine Appearance Clear (Clear); Urine Color Dark Yellow (Yellow); Urine Urobilinogen >= 8.0 eU/dL (<2.0); Urine pH 7.5 (4.5-8.0)
[2022-02-25] MEDS: SIMVASTATIN 10 MG TABLET PO SCH (21:21)
[2022-02-26] MEDS: ALBUTEROL/IPRATROPIUM 3 ML NEB RESP TX SCH ×4 (00:19→19:53)
[2022-02-26] MEDS: LORazepam 1 MG TABLET PO SCH ×4 (03:42→21:13)
[2022-02-26] MEDS: LEVOTHYROXINE 112 MCG TABLET PO SCH (05:58)
[2022-02-26 06:33] LABS: Basophils % 0.5 % (0.0-0.8); Eosinophils # 0.3 10*3/uL (0.0-0.87); Eosinophils % 4.4 % (0.00-10.9); Hemoglobin 11.8 GM/DL (14.0-18.0); Immature Granulocytes % 0.9 %; Immature Granulocytes Absolute 0.05 #; Lymphocytes # 1.6 10*3/uL (1.4-4.0); Lymphocytes % 27.7 % (21.2-54.2); Mean Corpuscular HGB Conc 33.7 GM/DL (32-36); Monocytes # 0.7 10*3/uL (0.11-0.8); Monocytes % 11.9 % (1.7-12.7); NRBC # 0.02 10*3/uL; Neutrophils % 54.6 % (38.7-73.9); Platelet Count 171 T/CUMM (130-400); Red Blood Count 3.43 MC/CUMM (3.8-5.5); Red Cell Distribution Width 15.8 % (9.3-17.3); White Blood Count 5.7 T/CUMM (4-12)
[2022-02-26 06:58] LABS: Calcium 8.4 MG/DL (8.5-10.1); Osmolality,Calculated 274.7 MOS/KG (273-304); Potassium 3.9 MMOL/L (3.5-5.1)
[2022-02-26] MEDS: ASCORBIC ACID 500 MG TABLET PO SCH ×2 (09:29→21:12)
[2022-02-26] MEDS: BISOPROLOL 5 MG TABLET PO SCH (09:29)
[2022-02-26] MEDS: FOLIC ACID 1 MG TABLET PO SCH (09:29)
[2022-02-26] MEDS: MULTIVITAMIN (CENTRUM) TABLET PO SCH (09:29)
[2022-02-26] MEDS: THIAMINE 100 MG TABLET PO SCH (09:29)
[2022-02-26] MEDS: PANTOPRAZOLE 40 MG TABLET PO SCH (09:30)
[2022-02-26] MEDS: DILTIAZEM CD 240 MG CAPSULE PO SCH (09:30)
[2022-02-26] MEDS: ENOXAPARIN 40 MG/0.4 ML SYRINGE SUBCUT SCH (09:30)
[2022-02-26] MEDS: SIMVASTATIN 10 MG TABLET PO SCH (21:13)
[2022-02-27] MEDS: ALBUTEROL/IPRATROPIUM 3 ML NEB RESP TX SCH ×4 (00:14→19:57)
[2022-02-27] MEDS: LORazepam 1 MG TABLET PO SCH ×4 (04:52→22:46)
[2022-02-27 05:28] LABS: Basophils % 0.7 % (0.0-0.8); Eosinophils # 0.4 10*3/uL (0.0-0.87); Hematocrit 34.3 VOL% (42.0-52.0); Hemoglobin 11.7 GM/DL (14.0-18.0); Immature Granulocytes % 0.5 %; Immature Granulocytes Absolute 0.03 #; Lymphocytes # 1.9 10*3/uL (1.4-4.0); Lymphocytes % 34.4 % (21.2-54.2); Mean Corpuscular HGB Conc 34.1 GM/DL (32-36); Mean Corpuscular Volume 101.2 FL (87-102); Mean Platelet Volume 10.2 FL (9.6-12.0); Monocytes # 0.7 10*3/uL (0.11-0.8); Monocytes % 12.7 % (1.7-12.7); Neutrophils % 43.7 % (38.7-73.9); Platelet Count 186 T/CUMM (130-400); Red Blood Count 3.39 MC/CUMM (3.8-5.5); Red Cell Distribution Width 15.7 % (9.3-17.3); White Blood Count 5.5 T/CUMM (4-12)
[2022-02-27 05:41] LABS: Calcium 8.1 MG/DL (8.5-10.1); Osmolality,Calculated 280.3 MOS/KG (273-304)
[2022-02-27] MEDS: LEVOTHYROXINE 112 MCG TABLET PO SCH (05:49)
[2022-02-27] MEDS: LACTATED RINGERS 1,000 ML IV SCH (08:22)
[2022-02-27] MEDS ORDERED: LIDOCAINE 2% 5 ML VIAL ONE (09:29)
[2022-02-27] MEDS ORDERED: propofoL 200 MG/20 ML VIAL IV ONE (09:29)
[2022-02-27] MEDS: ENOXAPARIN 40 MG/0.4 ML SYRINGE SUBCUT SCH (11:13)
[2022-02-27] MEDS: MULTIVITAMIN (CENTRUM) TABLET PO SCH (12:01)
[2022-02-27] MEDS: FOLIC ACID 1 MG TABLET PO SCH (12:01)
[2022-02-27] MEDS: ASCORBIC ACID 500 MG TABLET PO SCH ×2 (12:02→22:46)
[2022-02-27] MEDS: DILTIAZEM CD 240 MG CAPSULE PO SCH (12:02)
[2022-02-27] MEDS: THIAMINE 100 MG TABLET PO SCH (12:02)
[2022-02-27] MEDS: PANTOPRAZOLE 40 MG TABLET PO SCH ×2 (12:03→22:46)
[2022-02-27] MEDS: BISOPROLOL 5 MG TABLET PO SCH (12:08)
[2022-02-27] MEDS: SIMVASTATIN 10 MG TABLET PO SCH (22:46)
[2022-02-27] MEDS: diphenhydrAMINE CAP 25 MG CAPSULE PO PRN (22:46)
[2022-02-28] MEDS: ALBUTEROL/IPRATROPIUM 3 ML NEB RESP TX SCH ×4 (00:36→19:25)
[2022-02-28] MEDS: LORazepam 1 MG TABLET PO SCH ×3 (03:59→21:54)
[2022-02-28] MEDS: LEVOTHYROXINE 112 MCG TABLET PO SCH (05:48)
[2022-02-28 05:59] LABS: Basophils % 0.5 % (0.0-0.8); Eosinophils # 0.4 10*3/uL (0.0-0.87); Eosinophils % 7.1 % (0.00-10.9); Hematocrit 33.5 VOL% (42.0-52.0); Hemoglobin 11.2 GM/DL (14.0-18.0); Immature Granulocytes % 0.8 %; Immature Granulocytes Absolute 0.05 #; Lymphocytes # 2.3 10*3/uL (1.4-4.0); Lymphocytes % 37.4 % (21.2-54.2); Mean Corpuscular HGB Conc 33.4 GM/DL (32-36); Mean Corpuscular Volume 102.1 FL (87-102); Monocytes # 0.9 10*3/uL (0.11-0.8); Monocytes % 14.4 % (1.7-12.7); Neutrophils % 39.8 % (38.7-73.9); Platelet Count 201 T/CUMM (130-400); Red Blood Count 3.28 MC/CUMM (3.8-5.5); Red Cell Distribution Width 15.8 % (9.3-17.3); White Blood Count 6.2 T/CUMM (4-12)
[2022-02-28 06:20] LABS: Calcium 8.7 MG/DL (8.5-10.1); Osmolality,Calculated 276.7 MOS/KG (273-304); Potassium 3.9 MMOL/L (3.5-5.1)
[2022-02-28] MEDS: ENOXAPARIN 40 MG/0.4 ML SYRINGE SUBCUT SCH (09:57)
[2022-02-28] MEDS: LACTATED RINGERS 1,000 ML IV SCH (10:00)
[2022-02-28] MEDS: BISOPROLOL 5 MG TABLET PO SCH (10:01)
[2022-02-28] MEDS: ASCORBIC ACID 500 MG TABLET PO SCH ×2 (10:02→21:54)
[2022-02-28] MEDS: MULTIVITAMIN (CENTRUM) TABLET PO SCH (10:02)
[2022-02-28] MEDS: DILTIAZEM CD 240 MG CAPSULE PO SCH (10:02)
[2022-02-28] MEDS: FOLIC ACID 1 MG TABLET PO SCH (10:02)
[2022-02-28] MEDS: THIAMINE 100 MG TABLET PO SCH (10:04)
[2022-02-28] MEDS: PANTOPRAZOLE 40 MG TABLET PO SCH ×2 (10:04→21:54)
[2022-02-28] MEDS: APIXABAN 5 MG TABLET PO SCH (10:09)
[2022-02-28] MEDS: METHOCARBAMOL 500 MG TABLET PO SCH ×3 (12:47→21:54)
[2022-02-28] MEDS ORDERED: ENOXAPARIN 40 MG/0.4 ML SYRINGE SUBCUT SCH (20:00)
[2022-02-28] MEDS: diphenhydrAMINE CAP 25 MG CAPSULE PO PRN (21:53)
[2022-02-28] MEDS: SIMVASTATIN 10 MG TABLET PO SCH (21:54)
[2022-03-01] MEDS: ALBUTEROL/IPRATROPIUM 3 ML NEB RESP TX SCH ×2 (02:30→07:38)
[2022-03-01 05:33] LABS: Basophils % 0.5 % (0.0-0.8); Eosinophils # 0.4 10*3/uL (0.0-0.87); Eosinophils % 7.6 % (0.00-10.9); Hematocrit 34.2 VOL% (42.0-52.0); Hemoglobin 11.4 GM/DL (14.0-18.0); Immature Granulocytes % 0.5 %; Immature Granulocytes Absolute 0.03 #; Lymphocytes # 2.4 10*3/uL (1.4-4.0); Lymphocytes % 42.6 % (21.2-54.2); Mean Corpuscular HGB Conc 33.3 GM/DL (32-36); Mean Corpuscular Volume 101.5 FL (87-102); Mean Platelet Volume 9.5 FL (9.6-12.0); Monocytes # 0.9 10*3/uL (0.11-0.8); Monocytes % 15.1 % (1.7-12.7); Neutrophils % 33.7 % (38.7-73.9); Platelet Count 210 T/CUMM (130-400); Red Blood Count 3.37 MC/CUMM (3.8-5.5); Red Cell Distribution Width 15.8 % (9.3-17.3); White Blood Count 5.6 T/CUMM (4-12)
[2022-03-01] MEDS: LEVOTHYROXINE 112 MCG TABLET PO SCH (05:40)
[2022-03-01 05:47] LABS: Calcium 8.3 MG/DL (8.5-10.1); Osmolality,Calculated 273.8 MOS/KG (273-304); Potassium 4.1 MMOL/L (3.5-5.1)
[2022-03-01 06:12] LABS: Band Neutrophils 1 % (0-10); Eosinophils 8 % (0-10); Lymphocytes 47 % (20-55); Metamyelocytes 1 %; Platelet Estimate Normal; Target Cells 1+; Total Cells Counted 100
[2022-03-01] MEDS: BISOPROLOL 5 MG TABLET PO SCH (10:04)
[2022-03-01] MEDS: DILTIAZEM CD 240 MG CAPSULE PO SCH (10:05)
[2022-03-01] MEDS: MULTIVITAMIN (CENTRUM) TABLET PO SCH (10:05)
[2022-03-01] MEDS: PANTOPRAZOLE 40 MG TABLET PO SCH (10:05)
[2022-03-01] MEDS: ASCORBIC ACID 500 MG TABLET PO SCH (10:05)
[2022-03-01] MEDS: METHOCARBAMOL 500 MG TABLET PO SCH (10:05)
[2022-03-01] MEDS: THIAMINE 100 MG TABLET PO SCH (10:06)
[2022-03-01] MEDS: LORazepam 1 MG TABLET PO SCH (10:06)
[2022-03-01] MEDS: FOLIC ACID 1 MG TABLET PO SCH (10:06)
[2022-03-01 11:26] VITALS: BP 100/67
== END 2022-03-01 13:08 | disposition home or self-care (01) | DRG 309 ==
LOC: N.ED 18:48 → N.TELES 22:16 → SUATTDRO 22:16 → N.TELES 02-23 00:41
PROVIDERS: ADMIT Phlebology; ATTEND Hospitalist